=== PATIENT | male | born 1975 | race Caucasian/White ===

== ENCOUNTER → 2016-07-10 | Outpatient (CLI) | payer BC ==
[~2016-07-10] MED LIST: ASCOCRY2; CHOL20009 PO; IBUP-1459 PO; MISCCAP80 PO; PNT500 PO; PRD5 PO; PRT40 PO; RMCI IV; iron IV
[2016-07-10 18:44] LABS: BASO % 0.5 %; BASO ABS # 0.07 K/uL (0-0.2); COMPLETE YES; HEMATOCRIT 35.9 % (42-52); IG% 0.2 %; LYMPH % 34.2 %; LYMPH ABS # 4.48 K/uL (1.2-3.4); MEAN CELL VOLUME 78.9 fL (80-100); MEAN CORPUSCULAR HEMOGLOBIN 25.7 pg (25-34); MEAN CORPUSCULAR HGB CONC 32.6 g/dl (32-36); MEAN PLATELET VOLUME 9.5 fL (7.4-10.4); MONO % 5.6 %; NEUT % 55.5 %; PLATELET COUNT 473 K/uL (130-400); RED BLOOD COUNT 4.55 M/uL (4.7-6.1); WHITE BLOOD COUNT 13.11 K/uL (4.8-10.8)
[2016-07-10 18:57] LABS: ALT/SGPT 29 U/L (12-78); AST/SGOT 17 U/L (15-37); BLOOD UREA NITROGEN 10 mg/dl (7-18); BUN/CREATININE RATIO 12.2 (10-20); CALCIUM 8.8 mg/dl (8.5-10.1); CARBON DIOXIDE 31 mmol/L (21-32); CHLORIDE 103 mmol/L (98-107); CHOLESTEROL 119 mg/dl (0-200); CREATININE 0.82 mg/dl (0.60-1.40); GLUCOSE 101 mg/dl (70-99); POTASSIUM 3.8 mmol/L (3.5-5.1); SODIUM 140 mmol/L (136-145); TRIGLYCERIDES 115 mg/dl (0-150); VERY LOW DENSITY LIPOPROT CALC 23 mg/dl
[2016-07-10 19:00] LABS: ALB/GLOB RATIO 0.9 (0.9-2); ALKALINE PHOSPHATASE 89 U/L (45-117); C-REACTIVE PROTEIN < 0.29 mg/dl (0-0.29); CHOLESTEROL/HDL RATIO 2.1; FERRITIN 3.9 ng/ml (8.0-388.0); HDL CHOLESTEROL 56 mg/dl; LDL CHOLESTEROL CALCULATED 40 mg/dl; TOTAL IRON BINDING CAPACITY 394 mcg/dl (250-450)
== END | disposition home or self-care (01) ==
LOC: C.LAB 17:51
PROVIDERS: ATTEND Physician Assistant
DX: Z00.00 Encounter for general adult medical examination without abnormal findings (principal); K50.90 Crohn's disease, unspecified, without complications

== ENCOUNTER → 2016-10-15 | Outpatient (CLI) | payer BC ==
[2016-10-15 17:28] LABS: ALT/SGPT 17 U/L (12-78); BLOOD UREA NITROGEN 12 mg/dl (7-18); CARBON DIOXIDE 29 mmol/L (21-32); CHLORIDE 104 mmol/L (98-107); CREATININE 0.98 mg/dl (0.60-1.40); GLUCOSE 79 mg/dl (70-99); POTASSIUM 3.9 mmol/L (3.5-5.1); SODIUM 141 mmol/L (136-145)
[2016-10-15 17:31] LABS: ALB/GLOB RATIO 0.8 (0.9-2); ALKALINE PHOSPHATASE 106 U/L (45-117); AST/SGOT 14 U/L (15-37)
== END | disposition home or self-care (01) ==
LOC: C.LAB 13:48
PROVIDERS: ATTEND Physician Assistant
DX: K50.90 Crohn's disease, unspecified, without complications (principal)

== ENCOUNTER → 2016-10-15 | Outpatient (CLI) | payer BC ==
--- NOTE | 2016-10-15 13:05 | DIAGNOSTIC IMAGING REPORT ---
CHEST 2 VIEWS ROUTINE HISTORY:41 [id number] Crohn's [id number] Positive QuantiFERON-TB Gold testRA COMPARISON: Chest radiograph 06/09/2015. TECHNIQUE: Frontal and lateral views of the chest. FINDINGS: Cardiomediastinal and hilar silhouettes are within normal limits. No pneumothorax, effusion, focal airspace consolidation or overt pulmonary edema. Lungs are mildly hyperinflated. The bones are grossly intact. IMPRESSION: No acute cardiopulmonary process. The above report was generated using voice recognition software. It may contain grammatical, syntax or spelling errors. Electronically signed by: Kendrick Neville M.D. 10/15/2016 1:04 PM Dictated Date/Time: 10/15/2016 1:03 PM
== END | disposition home or self-care (01) ==
LOC: C.RAD1850 12:42
PROVIDERS: ATTEND Internal Medicine
DX: K50.90 Crohn's disease, unspecified, without complications (principal); R76.12 Nonspecific reaction to cell mediated immunity measurement of gamma interferon antigen response without active tuberculosis

== ENCOUNTER → 2016-12-23 | Outpatient (CLI) | payer BC ==
[2016-12-23 17:48] LABS: ALB/GLOB RATIO 0.8 (0.9-2); ALKALINE PHOSPHATASE 87 U/L (45-117); ALT/SGPT 15 U/L (12-78); AST/SGOT 12 U/L (15-37); BLOOD UREA NITROGEN 9 mg/dl (7-18); BUN/CREATININE RATIO 13.2 (10-20); C-REACTIVE PROTEIN 1.41 mg/dl (0-0.29); CALCIUM 8.3 mg/dl (8.5-10.1); CARBON DIOXIDE 29 mmol/L (21-32); CHLORIDE 104 mmol/L (98-107); CREATININE 0.69 mg/dl (0.60-1.40); GLUCOSE 105 mg/dl (70-99); POTASSIUM 3.3 mmol/L (3.5-5.1); SODIUM 140 mmol/L (136-145)
[2016-12-23 19:17] LABS: HEMATOCRIT 23.2 % (42-52); MEAN CELL VOLUME 67.4 fL (80-100); MEAN CORPUSCULAR HEMOGLOBIN 20.1 pg (25-34); MEAN CORPUSCULAR HGB CONC 29.7 g/dl (32-36); PLATELET COUNT 627 K/uL (130-400); RED BLOOD COUNT 3.44 M/uL (4.7-6.1)
[2016-12-23 19:20] LABS: BASO % 0.3 %; BASO ABS # 0.04 K/uL (0-0.2); COMPLETE YES; EOS % 5.3 %; HYPOCHROMIA PRESENT; IG% 0.3 %; LYMPH % 22.6 %; MICROCYTOSIS PRESENT; MONO % 8.5 %
== END | disposition home or self-care (01) ==
LOC: C.LAB1850 15:49
PROVIDERS: ATTEND Physician Assistant
DX: K50.90 Crohn's disease, unspecified, without complications (principal)

== ENCOUNTER 2016-12-24 09:33 | Inpatient (IN) | payer BC ==
[2016-12-24] VITALS (13 sets, daily range): BP systolic 111–129; BP diastolic 72–81; PULSE 87–109; TEMP 36.9–37.4; O2SAT 93–100; Ht 175.3 cm; Wt 67.7 kg
[~2016-12-24] VITALS: Ht 175.3 cm; Wt 67.7 kg
[~2016-12-24 09:33] MED LIST changes: -ASCOCRY2; -PRD5 PO; -PRT40 PO; -RMCI IV
[2016-12-24] MEDS ORDERED: SODIUM CHLORIDE 0.9% 1000ML 500 ML IV STA (09:55)
[2016-12-24] MEDS ORDERED: SODIUM CHLORIDE 0.9% 1000ML 1,000 ML IV STA (09:55)
[2016-12-24] MEDS ORDERED: PANTOprazole INJ 80 MG in DEXTROSE 5% 100ML IV ONE (10:15)
[2016-12-24] MEDS ORDERED: RMCI IV (10:28)
[2016-12-24] MEDS ORDERED: PNT500 PO (10:28)
[2016-12-24] MEDS ORDERED: PANTOprazole INJ 40 MG in DEXTROSE 5% 100ML IV SCH (10:30)
--- NOTE | 2016-12-24 10:38 | EMERGENCY ROOM VISIT NOTE ---
History Report prepared by Rakesh: Kirti Lucas Under the Supervision of: Dr. Dada Torres M.D. First contact with patient: 09:48 Chief Complaint: ABDOMINAL PAIN Stated Complaint: STOMACH PAINS History of Present Illness The patient is a 41 year old male who presents to the Emergency Room with complaints of constant abdominal pain for the past four days. The patient has a history of Crohn's Disease. Four days ago he felt like he was experiencing a typical flare-up of his Crohn's. He had sharp abdominal pain that was worse in the RLQ and nausea, which he states is typical of his flare-ups. Usually his symptoms last for about 1 day and then resolve on their own. This time his symptoms have persisted for four days. His pain has been up to a 10/10 in severity. He rates his current pain as a 2/10 in severity. He has not been taking anything for his symptoms. Since his symptoms did not go away he called his PCP's office yesterday. They did not see him in the office but sent him to have blood work done. The patient received a phone call this morning saying that his hemoglobin was 6.9 and that he should come to the ED for further evaluation. He reports that he has been feeling more fatigued lately. states that he appears pale. The patient denies fevers, chills, lightheadedness , shortness of breath, and hematochezia. He has been having black stools lately. He is still having bowel movements and passing gas. He feels more bloated than usual. The patient has never had to have abdominal surgery for his Crohn's. He gets iron treatments and also takes Remicade. He has never had to receive blood before. The patient was scheduled to have his wisdom teeth removed tomorrow. His oral surgeon advised him to take ibuprofen for his dental pain. The patient states that he has been taking ibuprofen frequently for the past few weeks. Source of History: patient, spouse/significant other Onset: 4 days ago Position: abdomen Symptom Intensity: 10/10 Quality: sharp Timing: constant Modifying Factors (Worsening): other (Hx of Crohn's) Associated Symptoms: + nausea, + melena, + fatigue, No fevers, No chills, No SOB, No hematochezia Review of Systems See HPI for pertinent positives & negatives. A total of 10 systems reviewed and were otherwise negative. Past Medical & Surgical Medical Problems: (1) Crohn's disease, unspecified, without complications (2) GIB (gastrointestinal bleeding) Family History No pertinent history stated. Social History Smoking Status: Former Smoker Marital Status: Housing Status: lives with significant other Occupation Status: employed Current/Historical Medications Scheduled Cholecalciferol (Vitamin D), 1 TAB PO QAM Infliximab (Remicade), Unknown Dose IV Q6WK Mesalamine (Pentasa), 1,500 MG PO BID Probiotic Product (Probiotic), 1 CAP PO QAM [iron], IV DIRECTED Allergies Coded Allergies: No Known Allergies (Verified , 12/24/16) Physical Exam Vital Signs Date Time Temp Pulse Resp B/P (MAP) Pulse Ox O2 Delivery O2 Flow Rate FiO2 12/24/16 11:31 121/76 96 12/24/16 10:48 88 16 121/76 99 Room Air 12/24/16 09:34 36.6 102 16 121/81 94 Room Air Physical Exam GENERAL: Patient is in no acute distress. HEENT: No acute trauma, normocephalic atraumatic, mucous membranes moist, no nasal congestion, no scleral icterus. NECK: No stridor, no adenopathy, no meningismus, trachea is midline. LUNGS: Clear to auscultation bilaterally, no wheeze, no rhonchi, breath sounds equal. HEART: Without murmurs gallops or rubs, regular rate and rhythm. ABDOMEN: Soft, nontender, bowel sounds positive, no hernias, no peritonitis. Mild distention with some tympani to percussion. RECTAL: No stool in the rectal vault, heme testing non-diagnostic. EXTREMITIES: No cyanosis or edema, full range of motion of all the joints without pain or difficulty, no signs for acute trauma. NEUROLOGIC: Oriented x 3, no acute motor or sensory deficits, no focal weakness. SKIN: No rash, no jaundice, no diaphoresis. Pale. Medical Decision & Procedures ER Provider Diagnostic Interpretation: Radiology results as stated below per my review and radiologist interpretation: ABDOMEN 2VIEW W/PA CHEST RTN CLINICAL HISTORY: Abdominal pain COMPARISON STUDY: Chest x-ray dated 10/15/2016 FINDINGS: The erect chest reveals no free air. There is no focal pulmonary consolidation. Erect and supine views the abdomen reveal no abnormally dilated loops of large or small bowel. There are no transition zones indicate bowel obstruction. There are pelvic basin calcifications likely are presenting phleboliths. 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 IMPRESSION: No evidence of bowel obstruction. No evidence of free air. Electronically signed by: Ron Hopson M.D. 12/24/2016 10:53 AM Dictated Date/Time: 12/24/2016 10:51 AM Laboratory Results 12/24/16 10:09 Red Blood Count 3.34, Mean Corpuscular Volume 68.0, Mean Corpuscular Hemoglobin 19.8, Mean Corpuscular Hemoglobin Concent 29.1, Mean Platelet Volume 8.9, Neutrophils (%) (Auto) 46.8, Lymphocytes (%) (Auto) 35.7, Monocytes (%) (Auto) 9.2, Eosinophils (%) (Auto) 7.6, Basophils (%) (Auto) 0.5, Neutrophils # (Auto) 3.87, Lymphocytes # (Auto) 2.95, Monocytes # (Auto) 0.76, Eosinophils # (Auto) 0.63, Basophils # (Auto) 0.04 12/24/16 10:09 Test 12/24/16 10:09 White Blood Count 8.27 K/uL (4.8-10.8) Red Blood Count 3.34 M/uL (4.7-6.1) Hemoglobin 6.6 g/dL (14.0-18.0) Hematocrit 22.7 % (42-52) Mean Corpuscular Volume 68.0 fL (80-100) Mean Corpuscular Hemoglobin 19.8 pg (25-34) Mean Corpuscular Hemoglobin Concent 29.1 g/dl (32-36) Platelet Count 626 K/uL (130-400) Mean Platelet Volume 8.9 fL (7.4-10.4) Neutrophils (%) (Auto) 46.8 % Lymphocytes (%) (Auto) 35.7 % Monocytes (%) (Auto) 9.2 % Eosinophils (%) (Auto) 7.6 % Basophils (%) (Auto) 0.5 % Neutrophils # (Auto) 3.87 K/uL (1.4-6.5) Lymphocytes # (Auto) 2.95 K/uL (1.2-3.4) Monocytes # (Auto) 0.76 K/uL (0.11-0.59) Eosinophils # (Auto) 0.63 K/uL (0-0.5) Basophils # (Auto) 0.04 K/uL (0-0.2) RDW Standard Deviation 40.4 fL (36.4-46.3) RDW Coefficient of Variation 16.1 % (11.5-14.5) Immature Granulocyte % (Auto) 0.2 % Immature Granulocyte # (Auto) 0.02 K/uL (0.00-0.02) Hypochromasia PRESENT Microcytosis PRESENT Anion Gap 7.0 mmol/L (3-11) Est Creatinine Clear Calc Drug Dose 127.3 ml/min Estimated GFR () 135.2 Estimated GFR (Non- 116.7 BUN/Creatinine Ratio 12.8 (10-20) Calcium Level 8.3 mg/dl (8.5-10.1) Total Bilirubin 0.3 mg/dl (0.2-1) Aspartate Amino Transf (AST/SGOT) 10 U/L (15-37) Alanine Aminotransferase (ALT/SGPT) 16 U/L (12-78) Alkaline Phosphatase 84 U/L (45-117) Total Protein 6.8 gm/dl (6.4-8.2) Albumin 3.0 gm/dl (3.4-5.0) Globulin 3.8 gm/dl (2.5-4.0) Albumin/Globulin Ratio 0.8 (0.9-2) Lipase 132 U/L (73-393) Laboratory results reviewed by me. Medications Administered Medications (Trade) Dose Ordered Sig/Cheo Route Start Time Stop Time Status Last Admin Dose Admin Sodium Chloride 500 ml @ 999 mls/hr Q31M STAT IV 12/24/16 09:55 12/24/16 10:25 DC 12/24/16 10:05 999 MLS/HR Sodium Chloride 1,000 ml @ 200 mls/hr Q5H STAT IV 12/24/16 09:55 12/24/16 12:55 DC 12/24/16 11:28 200 MLS/HR Pantoprazole Sodium 80 mg/ Dextrose 120 ml @ 480 mls/hr TODAY@1015 ONCE IV 12/24/16 10:15 12/24/16 10:29 DC 12/24/16 10:49 480 MLS/HR Pantoprazole Sodium 40 mg/ Dextrose 100 ml @ 20 mls/hr Q5H IV 12/24/16 10:30 12/24/16 15:29 12/24/16 11:10 20 MLS/HR ED Course 0948: The patient was evaluated in room A11B. A complete history and physical exam was performed. 0955: NSS 1000 ml @ 200 mls/hr IV, NSS 500 ml @ 999 mls/hr IV 1003: Protonix bolus/drip IV 1047: I spoke with Dr. Navas. We discussed the patients case. The patient will be evaluated by the [facility] for further management. 1102: I reassessed the patient at this time. He is feeling better and resting comfortably. I discussed the results and treatment plan with the patient. I answered all pertaining questions that he had. He expressed understanding and verbalized agreement. Medical Decision Differential diagnoses includes upper or lower GI bleed, anemia, bowel obstruction, Crohn's flare, ulcer, electrolyte imbalance, infection. There is no leukocytosis. The patient is significantly anemic with a hemoglobin in the range of 6. This is a drop for him. No significant electrolyte abnormality, kidney failure or hepatitis. Obstruction series does not show bowel obstruction or pneumonia. No free air. I did attempt to check the patient's stool for blood, there was no stool in the rectal vault to test. The patient received IV saline and IV Protonix. He was ordered for blood for transfusion although it is not yet ready to give. I talked to the patient and case management. Admission/observation is warranted. The on-call hospitalist was consulted. Given the black discoloration to his stools, given his recent nonsteroidal use, I suspect he has an upper GI bleed. Medication Reconcilliation Current Medication List: was personally reviewed by me Blood Pressure Screening Patient's blood pressure: Normal blood pressure Consults Time Called: 1044 Consulting Physician: Dr. Navas Returned Call: [address] Navas. We discussed the patients case. The patient will be evaluated by the [facility] for further management. Impression Primary Impression: Anemia Additional Impression: Exacerbation of Crohn's disease Scribe Attestation The scribe's documentation has been prepared under my direction and personally reviewed by me in its entirety. I confirm that the note above accurately reflects all work, treatment, procedures, and medical decision making performed by me. Departure Information Dispostion Being Evaluated By Hospitalist Miguel Angel Lopez M.D. (PCP) Patient Instructions My [facility] Problem Qualifiers Primary Impression: Anemia Anemia type: unspecified type Qualified Codes: D64.9 - Anemia, unspecified Additional Impression: Exacerbation of Crohn's disease Digestive disease complication type: other complication Qualified Codes: K50.918 - Crohn's disease, unspecified, with other complication
[2016-12-24 10:40] LABS: HEMATOCRIT 22.7 % (42-52); MEAN CORPUSCULAR HEMOGLOBIN 19.8 pg (25-34); MEAN CORPUSCULAR HGB CONC 29.1 g/dl (32-36); MEAN PLATELET VOLUME 8.9 fL (7.4-10.4); PLATELET COUNT 626 K/uL (130-400); RED BLOOD COUNT 3.34 M/uL (4.7-6.1); WHITE BLOOD COUNT 8.27 K/uL (4.8-10.8)
[2016-12-24 10:45] LABS: BUN/CREATININE RATIO 12.8 (10-20); CALCIUM 8.3 mg/dl (8.5-10.1); CREATININE 0.72 mg/dl (0.60-1.40); POTASSIUM 3.6 mmol/L (3.5-5.1)
[2016-12-24 10:47] LABS: ALB/GLOB RATIO 0.8 (0.9-2)
--- NOTE | 2016-12-24 10:54 | DIAGNOSTIC IMAGING REPORT ---
ABDOMEN 2VIEW W/PA CHEST RTN CLINICAL HISTORY: Abdominal pain COMPARISON STUDY: Chest x-ray dated 10/15/2016 FINDINGS: The erect chest reveals no free air. There is no focal pulmonary consolidation. Erect and supine views the abdomen reveal no abnormally dilated loops of large or small bowel. There are no transition zones indicate bowel obstruction. There are pelvic basin calcifications likely are presenting phleboliths. 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 IMPRESSION: No evidence of bowel obstruction. No evidence of free air. Electronically signed by: Ron Hopson M.D. 12/24/2016 10:53 AM Dictated Date/Time: 12/24/2016 10:51 AM
[2016-12-24 11:08] LABS: BASO % 0.5 %; BASO ABS # 0.04 K/uL (0-0.2); COMPLETE YES; EOS % 7.6 %; HYPOCHROMIA PRESENT; IG% 0.2 %; LYMPH % 35.7 %; LYMPH ABS # 2.95 K/uL (1.2-3.4); MICROCYTOSIS PRESENT; MONO % 9.2 %; NEUT % 46.8 %
[2016-12-24] MEDS ORDERED: ONDANSETRON INJ 2 MG/ML 2 ML VIAL IV PRN (11:30)
--- NOTE | 2016-12-24 11:37 | History and Physical ---
History & Physical Date & Time of Service: Dec 24, 2016 at 11:24 Chief Complaint: Stomach Pains Primary Care Physician: Miguel Angel Cardona M.D. History of Present Illness Source: patient Pt is a 41 yo male who presents to the ER due to abnormal lab value Hg 6.6 and complaints of intermittent lower right abdominal pain for the past four days. The patient has a history of Crohn's Disease in which he follows up with Dr. Michelle. Four days ago he felt like he was experiencing a typical flare-up of his Crohn's. Pt reports some diarrhea and moderate abd pain with no radiation. No fevers or chills reported. He rates his current pain as a 2/10 in severity. Pt also has been taking motrin for past 2 weeks for his wisdom teeth pain. Pt reports he was supposed to have them removed tomorrow due to impaction. He does state having dark tarry stools for past 1 week. Pt states he has hx of iron def anemia has well and has been on iron infusions in the past. Past Medical/Surgical History Medical Problems: (1) Crohn's disease, unspecified, without complications Status: Chronic Social History Smoking Status: Former Smoker Marital Status: Occupational Status: employed Multi-Drug Resistant Organisms History of MDRO: No Allergies Coded Allergies: No Known Allergies (Verified , 12/24/16) Home Medications Scheduled Cholecalciferol (Vitamin D), 1 TAB PO QAM Infliximab (Remicade), Unknown Dose IV Q6WK Mesalamine (Pentasa), 1,500 MG PO BID Probiotic Product (Probiotic), 1 CAP PO QAM [iron], IV DIRECTED Review of Systems Constitutional: No fever, No chills ENT: No hearing loss, No unusual epistaxis, No nasal symptoms, No sore throat Respiratory: No cough, No sputum, No wheezing, No shortness of breath, No dyspnea on exertion Cardiovascular: No chest pain, No orthopnea, No PND, No edema Abdomen: + pain, + diarrhea, + GI bleeding, No nausea, No vomiting, No constipation Musculoskeletal: No joint pain, No muscle pain, No swelling, No calf pain Genitourinary - Male: No hematuria, No dysuria, No urinary frequency, No urinary urgency Neurologic: No memory loss, No paralysis, No weakness, No numbness/tingling Psychiatric: No depression symptoms, No anhedonism, No anxiety, No insomnia Hematologic / Lymphatic: No abnormal bleeding/bruising, No clotting problems, No night sweats Integumentary: No rash, No itch Physical Exam Vital Signs Date Time Temp Pulse Resp B/P (MAP) Pulse Ox O2 Delivery O2 Flow Rate FiO2 12/24/16 10:48 88 16 121/76 99 Room Air 12/24/16 09:34 36.6 102 16 121/81 94 Room Air General Appearance: WD/WN, no apparent distress Head: normocephalic, atraumatic Eyes: normal inspection, PERRL, EOMI, sclerae normal Neck: supple, no adenopathy, thyroid normal, no JVD Respiratory/Chest: chest non-tender, lungs clear, normal breath sounds, no respiratory distress Cardiovascular: regular rate, rhythm, no edema, no gallop, no JVD Abdomen/GI: normal bowel sounds, non tender, soft, no organomegaly Extremities/Musculoskelatal: normal inspection, no calf tenderness, normal capillary refill, no pedal edema Neurologic/Psych: no motor/sensory deficits, alert, oriented x 3 Skin: normal color, warm/dry, no rash Lymphatic: no adenopathy Diagnostics Laboratory Results Results Past 24 Hours Test 12/24/16 10:09 Range/Units White Blood Count 8.27 4.8-10.8 K/uL Red Blood Count 3.34 4.7-6.1 M/uL Hemoglobin 6.6 14.0-18.0 g/dL Hematocrit 22.7 42-52 % Mean Corpuscular Volume 68.0 80-100 fL Mean Corpuscular Hemoglobin 19.8 25-34 pg Mean Corpuscular Hemoglobin Concent 29.1 32-36 g/dl Platelet Count 626 130-400 K/uL Mean Platelet Volume 8.9 7.4-10.4 fL Neutrophils (%) (Auto) 46.8 % Lymphocytes (%) (Auto) 35.7 % Monocytes (%) (Auto) 9.2 % Eosinophils (%) (Auto) 7.6 % Basophils (%) (Auto) 0.5 % Neutrophils # (Auto) 3.87 1.4-6.5 K/uL Lymphocytes # (Auto) 2.95 1.2-3.4 K/uL Monocytes # (Auto) 0.76 0.11-0.59 K/uL Eosinophils # (Auto) 0.63 0-0.5 K/uL Basophils # (Auto) 0.04 0-0.2 K/uL RDW Standard Deviation 40.4 36.4-46.3 fL RDW Coefficient of Variation 16.1 11.5-14.5 % Immature Granulocyte % (Auto) 0.2 % Immature Granulocyte # (Auto) 0.02 0.00-0.02 K/uL Hypochromasia PRESENT Microcytosis PRESENT Sodium Level 141 136-145 mmol/L Potassium Level 3.6 3.5-5.1 mmol/L Chloride Level 107 98-107 mmol/L Carbon Dioxide Level 27 21-32 mmol/L Anion Gap 7.0 3-11 mmol/L Blood Urea Nitrogen 9 7-18 mg/dl Creatinine 0.72 0.60-1.40 mg/dl Est Creatinine Clear Calc Drug Dose 127.3 ml/min Estimated GFR () 135.2 Estimated GFR (Non- 116.7 BUN/Creatinine Ratio 12.8 10-20 Random Glucose 99 70-99 mg/dl Calcium Level 8.3 8.5-10.1 mg/dl Total Bilirubin 0.3 0.2-1 mg/dl Aspartate Amino Transf (AST/SGOT) 10 15-37 U/L Alanine Aminotransferase (ALT/SGPT) 16 12-78 U/L Alkaline Phosphatase 84 45-117 U/L Total Protein 6.8 6.4-8.2 gm/dl Albumin 3.0 3.4-5.0 gm/dl Globulin 3.8 2.5-4.0 gm/dl Albumin/Globulin Ratio 0.8 0.9-2 Lipase 132 73-393 U/L Impression Assessment and Plan Pt is a 41 yo male with hs of Crohns who was referred to ER after labs this AM reports low hemoglobin. Pt has reported right lower quadrant abd pain in addition for past 4 days, as well as having dark tarry stools for past week. Pt has been taking motrin for his wisdom teeth pain in which was scheduled to removed on Acute anemia likely secondary to upper GI bleed in setting of NSAID use. Will admit to tele at this time. 2 units of PRBCS ordered in ER to be transfused. Will obtain serial HHs as well. Prontonix drip started. Dr Michelle consulted as well. Crohns with exacerbation - Pain also may be related to gastritis from NSAID use. At this time pain controlled, if worsening may need to obtain CT abd/ pelvis. Cont mesalamine. Will start on IV solumedrol 60 mg q 8hrs in addition to zosyn and flagyl. Pt is FULL CODE VTE Prophylaxis VTE Risk Assessment Done? Y/N: Yes Risk Level: Moderate
[2016-12-24] MEDS ORDERED: PIPERACILL/TAZOBAC CONSULT ACTIVE PRN (13:00)
[2016-12-24] MEDS ORDERED: PIPERACILL/TAZOBAC IV 3.375 GM in DEXTROSE 5% 100ML IV ONE (13:00)
[2016-12-24] MEDS: METHYLPREDNISOLONE IV 60 MG in SYRINGE 0 ML IV SCH ×2 (13:16→22:19)
[2016-12-24] MEDS: METRONIDAZOLE / NSS 500 MG in PREMIXED NSS 100 ML IV SCH ×2 (13:16→22:19)
[2016-12-24] MEDS: SODIUM CHLORIDE 0.9% 1000ML 1,000 ML IV SCH ×2 (13:16→23:49)
[2016-12-24 14:35] LABS: HEMATOCRIT 19.9 % (42-52)
[2016-12-24] MEDS: PANTOprazole INJ 40 MG in DEXTROSE 5% 100ML IV SCH ×2 (15:36→20:54)
[2016-12-24] MEDS: PIPERACILL/TAZOBAC IV 3.375 GM in DEXTROSE 5% 100ML 100 ML IV SCH (20:55)
[2016-12-24] MEDS: MESALAMINE 250 MG CAPCR PO SCH (21:19)
[2016-12-24 23:54] LABS: HEMATOCRIT 27.9 % (42-52)
[2016-12-25] VITALS (8 sets, daily range): BP systolic 93–122; BP diastolic 59–83; PULSE 77–111; TEMP 36.3–36.9; O2SAT 95–98
--- NOTE | 2016-12-25 00:51 | GASTROINTESTINAL CONSULTATION ---
DATE OF CONSULTATION: 12/24/2016 RACE: . CONSULTING PHYSICIAN: Dr. Michelle. REASON FOR CONSULTATION: Crohn disease, GI bleed, melena. HISTORY OF PRESENT ILLNESS: Cheo Mejia is a 41-year-old male who is well known to our service. He does have a history of fistulizing Crohn disease with stricturing disease as well in the terminal ileum. He has been maintained on Remicade therapy as an outpatient as well as Pentasa. He has been seen by Dr. Chao of colorectal surgery who advised the patient to undergo surgical intervention secondary to his severe Crohn disease; however, the patient refused at that time. He did most recently undergo a colonoscopy in February of 2016, at which time he was noted to have a stricture at the ileocecal valve which did not allow the scope to pass and this was prior to his imaging studies including an upper GI with small bowel followthrough and a CT scan, prompting his visit to Dr. Chao. He most recently had laboratory studies prior to this admission on 10/15/2016, at which time he was noted to have an H&H of 11.8 and 38.3. He presented to the department of emergency medicine early this morning with complaints of abdominal pain over the past 4 days, which he attributed to "Crohn's flare." He does relay the history that he had been taking ibuprofen therapy for a cracked wisdom tooth and had been doing this for approximately 3 weeks prior to his admission. On arrival to the department of emergency medicine, he was noted to have a H&H of 6.9 and 23.2 and was microcytic with an MCV of 67.4. His white blood cell count was 11.5 and his platelet count was 627. He was subsequently started on a Protonix drip, was given Solu-Medrol 60 mg IV q. 8 hours and given Zosyn therapy 3.375 g IV q. 8 hours. At the time that I saw the patient, he appeared comfortable. He stated that he was feeling better since his arrival. He described no lightheadedness or dizziness. He did have some intermittent melena prior to his admission. He states that he has never undergone an upper endoscopy. He denied any fevers, chills, nausea, vomiting, hematemesis, hematochezia, joint pain, eye pain or skin rashes. He had no further complaints. PAST MEDICAL HISTORY: Includes stricturing and fistulizing Crohn disease of the terminal ileum, anemia. PAST SURGICAL HISTORY: None. ALLERGIES: None. MEDICATIONS: At present include Zosyn 3.375 g IV q. 8 hours, Pentasa 1500 mg p.o. b.i.d., Protonix 8 mg per hour drip, Flagyl 500 mg IV q. 8 hours, methylprednisolone 60 mg IV q. 8 hours, Zofran 4 mg IV q. 6 p.r.n. nausea. SOCIAL HISTORY: He is accompanied by his . He denies any tobacco, alcohol or illicit drug use. FAMILY HISTORY: Negative for GI malignancy or inflammatory bowel disease. REVIEW OF SYSTEMS: Negative [id number] review other than pertinent positives listed in the HPI. PHYSICAL EXAMINATION: VITAL SIGNS: Today include a temp of 37.2, pulse 92, respirations 18, blood pressure 124/79, pulse ox 98% on room air. GENERAL: Awake, cooperative, noted pallor. HEAD: Normocephalic, atraumatic. EYES: Pupils equally round. Extraocular muscles are intact. ENT: External evaluation of ears and nose are normal. Oropharynx is clear. NECK: Soft, supple. No JVD or lymphadenopathy. CHEST: Clear to auscultation bilaterally. CARDIOVASCULAR SYSTEM: Regular rate and rhythm. ABDOMEN: Soft, tender in the right lower quadrant. Nondistended. There are positive bowel sounds. There is no hepatosplenomegaly or stigmata of chronic liver disease. EXTREMITIES: No clubbing, cyanosis, or edema. SKIN: Soft, noted pallor. LABORATORY STUDIES AND RADIOGRAPHIC STUDIES: Reviewed in the HPI. IMPRESSION: A 41-year-old male with anemia, melena and a history of stricturing and fistulizing Crohn disease of the terminal ileum. PLAN: Due to the patient's melena and recent NSAID use, I would recommend that he undergo an upper endoscopy tomorrow. He will be given clear liquids today and be kept n.p.o. after midnight. I will proceed with an EGD tomorrow. I would recommend continuing his Protonix drip at 8 mg per hour at this time. I would also recommend that he be continued on Solu-Medrol, though I would decrease his dose to 40 mg IV b.i.d. as doses higher than this have not shown any significant increase in improvement of symptoms in patients with Crohn disease. I would continue antibiotics as per the primary team. I will follow his clinical course and would recommend transfusing him to maintain his H&H around 8 and 24. I will make further recommendations as needed. Once again, thanks for allowing me to participate in the care of this patient. If you have any further questions, please do not hesitate in contacting me.
[2016-12-25] MEDS: PANTOprazole INJ 40 MG in DEXTROSE 5% 100ML IV SCH ×3 (01:08→11:03)
[2016-12-25] MEDS ORDERED: NURSING VERBAL MED ORDER ONE (01:15)
[2016-12-25] MEDS ORDERED: ZOLPIDEM TARTRATE 5 MG TAB PO STA (01:27)
[2016-12-25] MEDS: PIPERACILL/TAZOBAC IV 3.375 GM in DEXTROSE 5% 100ML 100 ML IV SCH ×3 (04:24→20:15)
[2016-12-25] MEDS: METRONIDAZOLE / NSS 500 MG in PREMIXED NSS 100 ML IV SCH ×3 (05:49→22:11)
[2016-12-25] MEDS: METHYLPREDNISOLONE IV 60 MG in SYRINGE 0 ML IV SCH (05:50)
[2016-12-25 06:09] LABS: BASO % 0.1 %; BASO ABS # 0.01 K/uL (0-0.2); HEMATOCRIT 29.8 % (42-52); IG% 0.3 %; LYMPH ABS # 1.16 K/uL (1.2-3.4); MEAN CELL VOLUME 72.2 fL (80-100); MEAN CORPUSCULAR HEMOGLOBIN 21.8 pg (25-34); MEAN CORPUSCULAR HGB CONC 30.2 g/dl (32-36); MONO % 2.1 %; NEUT % 82.5 %; PLATELET COUNT 546 K/uL (130-400); RED BLOOD COUNT 4.13 M/uL (4.7-6.1); WHITE BLOOD COUNT 7.74 K/uL (4.8-10.8)
[2016-12-25 06:48] LABS: BUN/CREATININE RATIO 6.9 (10-20); CALCIUM 8.5 mg/dl (8.5-10.1); CREATININE 0.62 mg/dl (0.60-1.40); POTASSIUM 3.6 mmol/L (3.5-5.1)
[2016-12-25 06:51] LABS: ANISOCYTOSIS PRESENT; COMPLETE YES; HYPERSEGMENTED POLYS 1+; HYPOCHROMIA PRESENT; MICROCYTOSIS PRESENT
[2016-12-25] MEDS: SODIUM CHLORIDE 0.9% 1000ML 1,000 ML IV SCH ×2 (07:45→20:15)
[2016-12-25] MEDS: MESALAMINE 250 MG CAPCR PO SCH ×2 (07:45→21:04)
[2016-12-25] MEDS ORDERED: INFLUENZA VIRUS QUAD VACCINE 0.5 ML SYR IM. ONE (08:00)
[2016-12-25] MEDS ORDERED: INFLUENZA ADMINISTRATION CHARGE ONE (08:00)
[2016-12-25] MEDS ORDERED: PROPOFOL IV EMULSION 10 MG/ML 20 ML VIAL IV ONE (08:41)
[2016-12-25] MEDS ORDERED: LIDOCAINE HCL 2% 2 ML VIAL (20MG/ML) ONE (08:41)
--- NOTE | 2016-12-25 08:56 | GI REPORT ---
Procedure Date: 12/25/2016 8:49 AM Procedure: Upper GI endoscopy Indications: Melena Medicines: Monitored Anesthesia Care Complications: No immediate complications. Estimated Blood Loss: Estimated blood loss: none. Procedure: Pre-Anesthesia Assessment: - Prior to the procedure, a History and Physical was performed, and patient medications and allergies were reviewed. The patient's tolerance of previous anesthesia was also reviewed. The risks and benefits of the procedure and the sedation options and risks were discussed with the patient. All questions were answered, and informed consent was obtained. Prior Anticoagulants: The patient has taken no previous anticoagulant or antiplatelet agents. ASA Grade Assessment: II - A patient with mild systemic disease. After reviewing the risks and benefits, the patient was deemed in satisfactory condition to undergo the procedure. After obtaining informed consent, the endoscope was passed under direct vision. Throughout the procedure, the patient's blood pressure, pulse, and oxygen saturations were monitored continuously. The scope was introduced through the mouth, and advanced to the second part of duodenum. The upper GI endoscopy was accomplished without difficulty. The patient tolerated the procedure well. Findings: The esophagus was normal. The stomach was normal. The examined duodenum was normal. Impression: - Normal esophagus. - Normal stomach. - Normal examined duodenum. - No specimens collected. Recommendation: - [facility]. - Perform a CT scan (computed tomography) of abdomen with contrast and pelvis with contrast today. - Use Protonix (pantoprazole) 40 mg PO daily. Andrea Michelle, DO 12/25/2016 8:55:42 AM This report has been signed electronically. Note Initiated On: 12/25/2016 8:49 AM I attest to the content of the Intraoperative Record and orders documented therein, exceptions below
[2016-12-25] MEDS ORDERED: OPTIRAY 320 IV PRN (09:15)
--- NOTE | 2016-12-25 09:38 | Anesthesiology Progress Note ---
Anesthesia Post Op Note Date & Time Dec 25, 2016 at 09:38 Vital Signs Pain Intensity: 0 Vital Signs Past 12 Hours Date Time Temp Pulse Resp B/P (MAP) Pulse Ox O2 Delivery O2 Flow Rate FiO2 12/25/16 09:12 82 18 111/75 (87) 98 Room Air 12/25/16 08:57 93 18 99/69 (79) 97 Room Air 12/25/16 08:37 36.7 91 18 122/75 (91) 95 Room Air 12/25/16 08:10 36.9 111 18 93/59 96 Room Air 12/25/16 07:45 Room Air 12/25/16 07:34 36.9 111 18 93/59 (70) 96 12/25/16 04:12 36.3 88 20 107/67 (80) 98 Room Air 12/25/16 04:00 Room Air 12/25/16 00:10 36.9 86 18 122/83 (96) 97 Room Air 12/25/16 00:00 Room Air Notes Mental Status: alert / awake / arousable, participated in evaluation Pt Amnestic to Procedure: Yes Nausea / Vomiting: adequately controlled Pain: adequately controlled Airway Patency, RR, SpO2: stable & adequate BP & HR: stable & adequate Hydration State: stable & adequate Anesthetic Complications: no major complications apparent
--- NOTE | 2016-12-25 11:31 | Hospitalist Progress Note ---
Hospitalist Progress Note Date of Service Dec 25, 2016. (Neeru Anthony CRNP) Subjective Pt evaluation today including: conversation w/ patient, physical exam, chart review, lab review, review of studies, conversation w/ c consultant Pain: none Voiding: no voiding problems Mr. Mejia appears comfortable lying in bed. He feels that his symptoms have subsided except for some tenderness to palpation in the right lower quadrant which is chronic. He has not had any black or bloody bowel movements since arriving at the hospital. He was able to drink contrast for the CT without difficulty. Constitutional: No fever, No chills Respiratory: No cough, No shortness of breath Cardiovascular: No chest pain Abdomen: No pain, No nausea, No vomiting, No diarrhea, No constipation All Other Systems: Reviewed and Negative (Neeru Anthony CRNP) Medications Medications (Trade) Dose Ordered Sig/Cheo Route Start Time Stop Time Status Last Admin Dose Admin Mesalamine (Pentasa Controlled Rel Cap) 1,500 mg BID PO 12/24/16 21:00 01/23/17 20:59 12/24/16 21:19 1,500 MG Piperacillin Sod/ Tazobactam Sod 3.375 gm/Dextrose 115 ml @ 28.75 mls/ hr Q8H IV 12/24/16 20:00 01/03/17 19:59 12/25/16 12:23 28.75 MLS/HR Pantoprazole Sodium 40 mg/ Dextrose 100 ml @ 20 mls/hr Q5H IV 12/24/16 15:30 12/25/16 11:47 DC 12/25/16 11:03 20 MLS/HR Zolpidem Tartrate (Ambien Tab) 5 mg NOW STAT PO 12/25/16 01:27 12/25/16 01:28 DC 12/25/16 01:33 5 MG Acetaminophen (Tylenol Tab) 650 mg Q4H PRN PO 12/25/16 13:00 01/24/17 12:59 12/25/16 13:15 650 MG (Neeru Anthony CRNP) Objective Vital Signs Date Time Temp Pulse Resp B/P (MAP) Pulse Ox O2 Delivery O2 Flow Rate FiO2 12/25/16 11:05 36.9 97 18 117/76 (90) 98 9/20/17 09:27 86 18 108/72 (84) 99 Room Air 12/25/16 09:12 82 18 111/75 (87) 98 Room Air 12/25/16 08:57 93 18 99/69 (79) 97 Room Air 12/25/16 08:37 36.7 91 18 122/75 (91) 95 Room Air 12/25/16 08:10 36.9 111 18 93/59 96 Room Air 12/25/16 07:45 Room Air 12/25/16 07:34 36.9 111 18 93/59 (70) 96 12/25/16 04:12 36.3 88 20 107/67 (80) 98 Room Air 12/25/16 04:00 Room Air 12/25/16 00:10 36.9 86 18 122/83 (96) 97 Room Air 12/25/16 00:00 Room Air 12/24/16 20:45 36.9 88 18 122/79 96 12/24/16 20:00 Room Air 12/24/16 19:45 37.1 93 18 121/80 93 12/24/16 19:15 37.0 101 18 125/80 96 12/24/16 18:46 37.4 103 18 129/81 98 12/24/16 18:30 37.3 100 18 118/76 96 12/24/16 18:14 37.2 100 18 122/80 12/24/16 17:49 37.4 98 18 118/79 96 12/24/16 17:15 36.9 109 20 120/81 98 12/24/16 16:45 37.0 93 113/72 96 12/24/16 16:15 37.2 92 18 124/79 98 12/24/16 16:00 Room Air 12/24/16 15:38 37.0 91 20 117/75 12/24/16 15:36 37.2 89 18 111/74 (86) 96 Room Air 12/24/16 13:10 36.9 87 16 116/76 100 Room Air 12/24/16 11:31 121/76 96 (Neeru Anthony, CONCRETE VIBRATOR OPERATOR) Physical Exam General Appearance: WD/WN, no apparent distress Eyes: normal inspection Respiratory/Chest: chest non-tender, lungs clear, normal breath sounds, no respiratory distress, no accessory muscle use Cardiovascular: regular rate, rhythm, no edema, no gallop, no murmur Abdomen: normal bowel sounds, soft, + tenderness (right lower quadrant) Neurologic/Psychiatric: alert, normal mood/affect, oriented x 3 Skin: normal color, warm/dry (Neeru Anthony, DENITA) Laboratory Results 12/25/16 05:54 Red Blood Count 4.13, Mean Corpuscular Volume 72.2 #, Mean Corpuscular Hemoglobin 21.8, Mean Corpuscular Hemoglobin Concent 30.2, Mean Platelet Volume 9.0, Neutrophils (%) (Auto) 82.5, Lymphocytes (%) (Auto) 15.0, Monocytes (%) ( Auto) 2.1, Eosinophils (%) (Auto) 0.0, Basophils (%) (Auto) 0.1, Neutrophils # ( Auto) 6.39, Lymphocytes # (Auto) 1.16, Monocytes # (Auto) 0.16, Eosinophils # ( Auto) 0.00, Basophils # (Auto) 0.01 12/25/16 05:54 Test 12/24/16 10:09 12/25/16 05:54 Total Bilirubin 0.3 mg/dl (0.2-1) Aspartate Amino Transf (AST/SGOT) 10 U/L (15-37) Alanine Aminotransferase (ALT/SGPT) 16 U/L (12-78) Alkaline Phosphatase 84 U/L (45-117) Total Protein 6.8 gm/dl (6.4-8.2) Albumin 3.0 gm/dl (3.4-5.0) Globulin 3.8 gm/dl (2.5-4.0) Albumin/Globulin Ratio 0.8 (0.9-2) Lipase 132 U/L (73-393) White Blood Count 7.74 K/uL (4.8-10.8) Red Blood Count 4.13 M/uL (4.7-6.1) Hemoglobin 9.0 g/dL (14.0-18.0) Hematocrit 29.8 % (42-52) Mean Corpuscular Volume 72.2 fL (80-100) Mean Corpuscular Hemoglobin 21.8 pg (25-34) Mean Corpuscular Hemoglobin Concent 30.2 g/dl (32-36) Platelet Count 546 K/uL (130-400) Mean Platelet Volume 9.0 fL (7.4-10.4) Neutrophils (%) (Auto) 82.5 % Lymphocytes (%) (Auto) 15.0 % Monocytes (%) (Auto) 2.1 % Eosinophils (%) (Auto) 0.0 % Basophils (%) (Auto) 0.1 % Neutrophils # (Auto) 6.39 K/uL (1.4-6.5) Lymphocytes # (Auto) 1.16 K/uL (1.2-3.4) Monocytes # (Auto) 0.16 K/uL (0.11-0.59) Eosinophils # (Auto) 0.00 K/uL (0-0.5) Basophils # (Auto) 0.01 K/uL (0-0.2) RDW Standard Deviation 48.7 fL (36.4-46.3) RDW Coefficient of Variation 18.6 % (11.5-14.5) Immature Granulocyte % (Auto) 0.3 % Immature Granulocyte # (Auto) 0.02 K/uL (0.00-0.02) Hypersegmented Polys 1+ Hypochromasia PRESENT Anisocytosis PRESENT Microcytosis PRESENT Anion Gap 7.0 mmol/L (3-11) Est Creatinine Clear Calc Drug Dose 147.8 ml/min Estimated GFR () 143.8 Estimated GFR (Non- 124.1 BUN/Creatinine Ratio 6.9 (10-20) Calcium Level 8.5 mg/dl (8.5-10.1) Last 24 Hours Test 12/24/16 12:31 12/24/16 23:15 12/25/16 05:54 Hemoglobin 6.1 g/dL 9.0 g/dL 9.0 g/dL Hematocrit 19.9 % 27.9 % 29.8 % White Blood Count 7.74 K/uL Red Blood Count 4.13 M/uL Mean Corpuscular Volume 72.2 fL Mean Corpuscular Hemoglobin 21.8 pg Mean Corpuscular Hemoglobin Concent 30.2 g/dl Platelet Count 546 K/uL Mean Platelet Volume 9.0 fL Neutrophils (%) (Auto) 82.5 % Lymphocytes (%) (Auto) 15.0 % Monocytes (%) (Auto) 2.1 % Eosinophils (%) (Auto) 0.0 % Basophils (%) (Auto) 0.1 % Neutrophils # (Auto) 6.39 K/uL Lymphocytes # (Auto) 1.16 K/uL Monocytes # (Auto) 0.16 K/uL Eosinophils # (Auto) 0.00 K/uL Basophils # (Auto) 0.01 K/uL RDW Standard Deviation 48.7 fL RDW Coefficient of Variation 18.6 % Immature Granulocyte % (Auto) 0.3 % Immature Granulocyte # (Auto) 0.02 K/uL Hypersegmented Polys 1+ Hypochromasia PRESENT Anisocytosis PRESENT Microcytosis PRESENT Sodium Level 141 mmol/L Potassium Level 3.6 mmol/L Chloride Level 108 mmol/L Carbon Dioxide Level 26 mmol/L Anion Gap 7.0 mmol/L Blood Urea Nitrogen 4 mg/dl Creatinine 0.62 mg/dl Est Creatinine Clear Calc Drug Dose 147.8 ml/min Estimated GFR () 143.8 Estimated GFR (Non- 124.1 BUN/Creatinine Ratio 6.9 Random Glucose 134 mg/dl Calcium Level 8.5 mg/dl (Neeru Anthony CRNP) Assessment and Plan Mr. Mejia is a 41 year old man here for anemia due to GI bleed presenting with H &H 6.1&19.9, dark tarry stools x 1 week, and history of Crohn's disease as well as two weeks of NSAID use for wisdom teeth pain. Anemia/ GI bleed - received 2 units PRBCs 12/24, hemoglobin stable above 7.0, no further tarry bowel movements or obvious bleeding, no further transfusions at this time. Discontinue NSAIDs. Protonix gtt changed to daily po. Crohn's disease - continue mesalamine, methylprednisolone, Zosyn and Flagyl. DVT prophylaxis: low risk, unable to take heparin due to GI bleed, encourage ambulation. (Neeru Anthony CRNP) MANAGER MARKETING Physician Supervision Note: I interviewed and examined the patient. Discussed with Queta Anthony NP and agree with findings and plan as documented in the note. Any exceptions or clarifications are listed here: None Patient presented with marked anemia and concurrent nonsteroidal use with a history of Crohn's disease and some melena, he underwent upper endoscopy with did not show any confirms source of bleeding, repeat abdomen and pelvis CT scan did not show any intra-abdominal pathology but evidence of perhaps some small bowel inflammation was seen regarding his Crohn's disease. Patient was transfused 2 units packed red blood cells he converted from her protonic drip to a bolus of Protonix.\ The patient's vital signs are stable post procedure he is tolerating an oral diet Abdominal exam is soft nontender with exception of very mild discomfort in the area and left the umbilicus no rebound This patient be continued on proton pump inhibitor his hemoglobin was watched in the morning if he remains stable and his symptoms are significant outpatient follow-up with GI might be arranged avoiding nonsteroidals in the future would be helpful Documented By: Que Jackson (Que Jackson M.D.)
--- NOTE | 2016-12-25 11:48 | DIAGNOSTIC IMAGING REPORT ---
ABD/PELVIS IV AND ORAL CONT CT DOSE: 500.13 mGycm HISTORY: Inflammatory bowel change Crohn's Disease TECHNIQUE: Multiaxial CT images of the abdomen and pelvis were performed following the use of intravenous and oral contrast. A dose lowering technique was utilized adhering to the principles of ALARA. COMPARISON STUDY: 04/01/2016 FINDINGS: Lung bases show minimal dependent basilar atelectasis. Lung bases otherwise are clear. Mild fatty infiltration of liver. Gallbladder is negative for distention. Pancreas is uniform. Kidneys enhance appropriately. Spleen is unremarkable. Bowel pattern remains similar compared to the prior study. Wall thickening of the distal ileum began estimated at 20 to 30 cm a similar. This does not create significant obstructive changes. There is a mild infiltrative change of the surrounding fat similar compared to the prior study. A well-defined fistula, however is not easily appreciated. Bladder is midline. Colon is considered nondistended. IMPRESSION: 1. No major change compared to the prior study. 2. Long segment distal ileum with evidence for wall thickening and mild hyperemic change. 3. This again is consistent with that of stable inflammatory bowel change and/or Crohn's. 4. No evidence for well-defined fistula. 5. Stable fatty infiltration of liver. The above report was generated using voice recognition software. It may contain grammatical, syntax or spelling errors. Electronically signed by: Zen Medina M.D. 12/25/2016 11:46 AM Dictated Date/Time: 12/25/2016 11:40 AM
[2016-12-25] MEDS ORDERED: ACETAMINOPHEN 325 MG TAB PO PRN (13:00)
[2016-12-25] MEDS ORDERED: BUTALBITAL/ACETAMIN/CAFFEINE TAB PO PRN (20:15)
[2016-12-25] MEDS: METHYLPREDNISOLONE IV 40 MG in SYRINGE 0 ML IV SCH (21:04)
[2016-12-25] MEDS ORDERED: ZOLPIDEM TARTRATE 5 MG TAB PO PRN (23:45)
[2016-12-26 04:00] VITALS: BP 98/61; PULSE 81; TEMP 36.7; O2SAT 95
[2016-12-26] MEDS: PIPERACILL/TAZOBAC IV 3.375 GM in DEXTROSE 5% 100ML 100 ML IV SCH ×2 (04:30→11:49)
[2016-12-26] MEDS: SODIUM CHLORIDE 0.9% 1000ML 1,000 ML IV SCH (04:30)
[2016-12-26 05:43] LABS: IG% 0.3 %; LYMPH % 9.4 %; LYMPH ABS # 1.48 K/uL (1.2-3.4); MEAN CELL VOLUME 72.2 fL (80-100); MEAN CORPUSCULAR HEMOGLOBIN 21.9 pg (25-34); MEAN CORPUSCULAR HGB CONC 30.4 g/dl (32-36); MEAN PLATELET VOLUME 8.8 fL (7.4-10.4); NEUT % 85.3 %; PLATELET COUNT 499 K/uL (130-400); RED BLOOD COUNT 3.74 M/uL (4.7-6.1); WHITE BLOOD COUNT 15.71 K/uL (4.8-10.8)
[2016-12-26] MEDS: METRONIDAZOLE / NSS 500 MG in PREMIXED NSS 100 ML IV SCH (06:04)
[2016-12-26 06:17] LABS: BUN/CREATININE RATIO 12.5 (10-20); CALCIUM 7.9 mg/dl (8.5-10.1); CREATININE 0.73 mg/dl (0.60-1.40); POTASSIUM 3.7 mmol/L (3.5-5.1)
[2016-12-26 06:53] LABS: ANISOCYTOSIS PRESENT; COMPLETE YES; HYPERSEGMENTED POLYS 1+; HYPOCHROMIA PRESENT; MICROCYTOSIS PRESENT
[2016-12-26] MEDS: MESALAMINE 250 MG CAPCR PO SCH (07:42)
[2016-12-26] MEDS: METHYLPREDNISOLONE IV 40 MG in SYRINGE 0 ML IV SCH (07:42)
--- NOTE | 2016-12-26 08:39 | Hospitalist Progress Note ---
Hospitalist Progress Note Date of Service Dec 26, 2016. Subjective Pt evaluation today including: conversation w/ patient, conversation w/ family , physical exam, chart review, lab review, conversation w/ senior management consultant, review of inpatient medication list Voiding: no voiding problems Mr. Mejia is feeling well today and mostly back to baseline except for some fatigue. He does not have abdominal pain and has not had any bowel movements today or over the night. Constitutional: + see HPI Respiratory: No cough, No shortness of breath, No dyspnea on exertion Cardiovascular: No chest pain, No palpitations Abdomen: No pain, No nausea, No vomiting, No diarrhea, No constipation, No GI bleeding All Other Systems: Reviewed and Negative Medications Medications (Trade) Dose Ordered Sig/Cheo Route Start Time Stop Time Status Last Admin Dose Admin Methylprednisolone Sodium Succinate 40 mg/Syringe 0.64 ml @ 1.5 mls/min BID IV 12/25/16 21:00 12/26/16 15:18 DC 12/26/16 07:42 1.5 MLS/MIN Pantoprazole Sodium (Protonix Tab) 40 mg QAM PO 12/26/16 09:00 12/26/16 15:18 DC 12/26/16 07:42 40 MG Acetaminophen/ Butalbital/ Caffeine (Fioricet Tab) 1 tab Q4H PRN PO 12/25/16 20:15 12/26/16 15:18 DC 12/25/16 21:03 1 TAB Zolpidem Tartrate (Ambien Tab) 5 mg HS PRN PO 12/25/16 23:45 12/26/16 15:18 DC 12/26/16 00:35 5 MG Objective Vital Signs Date Time Temp Pulse Resp B/P (MAP) Pulse Ox O2 Delivery O2 Flow Rate FiO2 12/26/16 04:00 Room Air 12/26/16 04:00 36.7 81 16 98/61 (73) 95 Room Air 12/26/16 00:00 Room Air 12/25/16 23:51 36.7 77 18 108/65 (79) 95 Room Air 12/25/16 21:03 36.9 89 18 106/71 (83) 96 Room Air 12/25/16 20:00 Room Air 12/25/16 16:00 Room Air 12/25/16 15:47 36.9 93 18 104/68 (80) 97 Room Air 12/25/16 12:30 Room Air 12/25/16 11:05 36.9 97 18 117/76 (90) 98 12/25/16 09:27 86 18 108/72 (84) 99 Room Air 12/25/16 09:12 82 18 111/75 (87) 98 Room Air 12/25/16 08:57 93 18 99/69 (79) 97 Room Air Physical Exam Notes: General: no distress Eyes: normal inspection, PERLL Respiratory: chest non tender, clear to auscultation, normal breath sounds, no respiratory distress, no accessory muscle use Cardiac: regular rate and rhythm, no rub or gallop, no murmur, no edema, no jvd GI/: active bowel sounds, no abd pain or tenderness, soft, non distended Extremities: normal range of motion, normal strength, non tender Neuro/Psych: alert and oriented x 3, normal mood and affect Skin: normal color, dry Laboratory Results Last 24 Hours Test 12/26/16 05:32 White Blood Count 15.71 K/uL Red Blood Count 3.74 M/uL Hemoglobin 8.2 g/dL Hematocrit 27.0 % Mean Corpuscular Volume 72.2 fL Mean Corpuscular Hemoglobin 21.9 pg Mean Corpuscular Hemoglobin Concent 30.4 g/dl Platelet Count 499 K/uL Mean Platelet Volume 8.8 fL Neutrophils (%) (Auto) 85.3 % Lymphocytes (%) (Auto) 9.4 % Monocytes (%) (Auto) 5.0 % Eosinophils (%) (Auto) 0.0 % Basophils (%) (Auto) 0.0 % Neutrophils # (Auto) 13.40 K/uL Lymphocytes # (Auto) 1.48 K/uL Monocytes # (Auto) 0.78 K/uL Eosinophils # (Auto) 0.00 K/uL Basophils # (Auto) 0.00 K/uL RDW Standard Deviation 50.9 fL RDW Coefficient of Variation 19.2 % Immature Granulocyte % (Auto) 0.3 % Immature Granulocyte # (Auto) 0.05 K/uL Nucleated RBC Absolute Count (auto) 0.04 K/uL Nucleated Red Blood Cells % 0.2 % Hypersegmented Polys 1+ Hypochromasia PRESENT Anisocytosis PRESENT Microcytosis PRESENT Sodium Level 143 mmol/L Potassium Level 3.7 mmol/L Chloride Level 112 mmol/L Carbon Dioxide Level 26 mmol/L Anion Gap 5.0 mmol/L Blood Urea Nitrogen 9 mg/dl Creatinine 0.73 mg/dl Est Creatinine Clear Calc Drug Dose 128.8 ml/min Estimated GFR () 134.5 Estimated GFR (Non- 116.0 BUN/Creatinine Ratio 12.5 Random Glucose 146 mg/dl Calcium Level 7.9 mg/dl Assessment and Plan Mr. Mejia is a 41 year old man here for anemia due to GI bleed presenting with H &H 6.1&19.9, dark tarry stools x 1 week, and history of Crohn's disease as well as two weeks of NSAID use for wisdom teeth pain. Acute blood loss anemia due to GI bleed - received 2 units PRBCs 12/24, hemoglobin stable above 7.0, no further tarry bowel movements or obvious bleeding, no further transfusions at this time. Discontinue NSAIDs. Protonix gtt changed to daily po. Crohn's disease - stable, he has tenderness but no abdominal pain or diarrhea. Continue mesalamine, switch to po steroids per GI, d/c antibiotics To discharge today as H&H is stable and he is largely symptom free. DVT prophylaxis: low risk, unable to take heparin due to GI bleed, encourage ambulation.
[2016-12-26] MEDS ORDERED: PANTOprazole SOD 40 MG TAB PO SCH (09:00)
--- NOTE | 2016-12-26 09:25 | Gastroenterology Progress Note ---
Progress Note Date of Service: Dec 26, 2016 Subjective Pt evaluation today including: conversation w/ patient, physical exam, chart review, lab review, review of studies Patient is a 41 yo male hospitalized with acute anemia. The patient has a history of Crohn's Disease on Remicade. Due significant disease of his ileum noted on multiple CT enterography studies, he was recently sent for evaluation by Dr. Chao of colorectal surgery. It was recommended that the patient undergo resection, however he refused. He has been taking NSAIDs frequently due to an infected tooth. His EGD yesterday was unremarkable. His H/H has improved with transfusion to 8.2/27.0. There are no overt signs of GI bleeding. Review of Systems Constitutional: No fever, No chills Eyes: No problem reported Respiratory: No cough, No shortness of breath Cardiac: No chest pain Abdomen: + pain, No nausea, No vomiting, No diarrhea, No constipation, No GI bleeding Musculoskeletal: No joint pain Neuro: No problem reported Skin: No problem reported Medications Current Inpatient Medications Medications (Trade) Dose Ordered Sig/Cheo Route Start Time Stop Time Status Last Admin Dose Admin Sodium Chloride 1,000 ml @ 100 mls/hr Q10H IV 12/24/16 13:00 01/23/17 12:59 12/26/16 04:30 100 MLS/HR Ondansetron HCl (Zofran Inj) 4 mg Q6H PRN IV 12/24/16 11:30 01/23/17 11:29 Mesalamine (Pentasa Controlled Rel Cap) 1,500 mg BID PO 12/24/16 21:00 01/23/17 20:59 12/26/16 07:42 1,500 MG Piperacillin Sod/ Tazobactam Sod 3.375 gm/Dextrose 115 ml @ 28.75 mls/ hr Q8H IV 12/24/16 20:00 01/03/17 19:59 12/26/16 04:30 28.75 MLS/HR Metronidazole 500 mg/Prmx 100 ml @ 100 mls/hr Q8H IV 12/24/16 14:00 01/03/17 13:59 12/26/16 06:04 100 MLS/HR Piperacillin Sod/ Tazobactam Sod (Consult) 1 ea UD PRN N/A 12/24/16 13:00 01/23/17 12:59 Methylprednisolone Sodium Succinate 40 mg/Syringe 0.64 ml @ 1.5 mls/min BID IV 12/25/16 21:00 01/24/17 20:59 12/26/16 07:42 1.5 MLS/MIN Ioversol (Optiray 320) 100 ml UD PRN IV 12/25/16 09:15 12/29/16 09:14 Pantoprazole Sodium (Protonix Tab) 40 mg QAM PO 12/26/16 09:00 01/25/17 08:59 12/26/16 07:42 40 MG Acetaminophen (Tylenol Tab) 650 mg Q4H PRN PO 12/25/16 13:00 01/24/17 12:59 12/25/16 13:15 650 MG Acetaminophen/ Butalbital/ Caffeine (Fioricet Tab) 1 tab Q4H PRN PO 12/25/16 20:15 01/24/17 20:14 12/25/16 21:03 1 TAB Zolpidem Tartrate (Ambien Tab) 5 mg HS PRN PO 12/25/16 23:45 01/24/17 23:44 12/26/16 00:35 5 MG Objective Vital Signs Date Time Temp Pulse Resp B/P (MAP) Pulse Ox O2 Delivery O2 Flow Rate FiO2 12/26/16 04:00 Room Air 12/26/16 04:00 36.7 81 16 98/61 (73) 95 Room Air 12/26/16 00:00 Room Air 12/25/16 23:51 36.7 77 18 108/65 (79) 95 Room Air 12/25/16 21:03 36.9 89 18 106/71 (83) 96 Room Air 12/25/16 20:00 Room Air 12/25/16 16:00 Room Air 12/25/16 15:47 36.9 93 18 104/68 (80) 97 Room Air 12/25/16 12:30 Room Air 12/25/16 11:05 36.9 97 18 117/76 (90) 98 12/25/16 09:27 86 18 108/72 (84) 99 Room Air Physical Exam General Appearance: WD/WN, no apparent distress Eyes: normal inspection, PERRL Respiratory/Chest: lungs clear, normal breath sounds Cardiovascular: regular rate, rhythm Abdomen: normal bowel sounds, non tender, soft Extremities: non-tender Neurologic/Psych: alert, oriented x 3 Skin: normal color Laboratory Results Last 24 Hours Test 12/26/16 05:32 12/26/16 08:36 White Blood Count 15.71 K/uL Red Blood Count 3.74 M/uL Hemoglobin 8.2 g/dL Hematocrit 27.0 % Mean Corpuscular Volume 72.2 fL Mean Corpuscular Hemoglobin 21.9 pg Mean Corpuscular Hemoglobin Concent 30.4 g/dl Platelet Count 499 K/uL Mean Platelet Volume 8.8 fL Neutrophils (%) (Auto) 85.3 % Lymphocytes (%) (Auto) 9.4 % Monocytes (%) (Auto) 5.0 % Eosinophils (%) (Auto) 0.0 % Basophils (%) (Auto) 0.0 % Neutrophils # (Auto) 13.40 K/uL Lymphocytes # (Auto) 1.48 K/uL Monocytes # (Auto) 0.78 K/uL Eosinophils # (Auto) 0.00 K/uL Basophils # (Auto) 0.00 K/uL RDW Standard Deviation 50.9 fL RDW Coefficient of Variation 19.2 % Immature Granulocyte % (Auto) 0.3 % Immature Granulocyte # (Auto) 0.05 K/uL Nucleated RBC Absolute Count (auto) 0.04 K/uL Nucleated Red Blood Cells % 0.2 % Hypersegmented Polys 1+ Hypochromasia PRESENT Anisocytosis PRESENT Microcytosis PRESENT Sodium Level 143 mmol/L Potassium Level 3.7 mmol/L Chloride Level 112 mmol/L Carbon Dioxide Level 26 mmol/L Anion Gap 5.0 mmol/L Blood Urea Nitrogen 9 mg/dl Creatinine 0.73 mg/dl Est Creatinine Clear Calc Drug Dose 128.8 ml/min Estimated GFR () 134.5 Estimated GFR (Non- 116.0 BUN/Creatinine Ratio 12.5 Random Glucose 146 mg/dl Calcium Level 7.9 mg/dl Assessment and Plan Patient is a 41 yo male with Crohn's disease who presented with severe abdominal pain and acute anemia requiring transfusion. EGD was unremarkable and a CT scan indicated persistent abnormalities of the terminal ileum for which he has previously been advised to have a resection. 1) Continue Remicade 5 mg/kg q 6 weeks. 2) Again, recommend he follow-through with the colorectal surgeon's recommendations for surgical resection of the terminal ileum. 3) Can convert IV steroids to po Prednisone on discharge. Would recommend a taper beginning at 40 mg po daily for 1 week, then decrease by 5 mg weekly for 8 week course. 4) Recommend complete avoidance of NSAID therapies. 5) Patient continues to take Pentasa as an outpatient though given the extent of his disease, it is doubtful that this medication is providing any benefit. 6) Continue PPI therapy with Protonix 40 mg daily on discharge. 7) Supportive care and discharge planning per primary team. Thank you for allowing us to participate in the care of this patient. If you should have any further questions, do not hesitate to contact us. Patient was discharged prior to my evaluation
[2016-12-26 09:48] LABS: ESTIMATED AVERAGE GLUCOSE 120 mg/dl; HA1C FLAG Normal (Normal)
[2016-12-26 11:08] VITALS: BP 126/76; PULSE 92; TEMP 36.7; O2SAT 97
[2016-12-26 12:19] LABS: HEMATOCRIT 28.7 % (42-52); MEAN CELL VOLUME 71.6 fL (80-100); MEAN CORPUSCULAR HEMOGLOBIN 22.4 pg (25-34); MEAN CORPUSCULAR HGB CONC 31.4 g/dl (32-36); MEAN PLATELET VOLUME 9.1 fL (7.4-10.4); PLATELET COUNT 554 K/uL (130-400); RED BLOOD COUNT 4.01 M/uL (4.7-6.1); WHITE BLOOD COUNT 17.16 K/uL (4.8-10.8)
[2016-12-26] MEDS ORDERED: PRT40 PO (12:49)
--- NOTE | 2016-12-26 12:49 | Discharge Instructions ---
Discharge Instructions Date of Service Dec 26, 2016. 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 Instructions / Follow-Up Instructions / Follow-Up Dr. Michelle's office will follow up with an appointment for a GI surgeon\\ Discontinue further NSAID use Current Hospital Diet Patient's current hospital diet: Regular Diet Discharge Diet Recommended Diet: Regular Diet Procedures Procedures Performed: EGD Pending Studies Studies pending at discharge: no Laboratory Results Hemoglobin A1c Test 12/26/16 08:36 Range/Units Estimated Average Glucose 120 mg/dl Hemoglobin A1c 5.8 H 4.5-5.6 % A1c was mildly elevated, please follow up with primary care provider. Medical Emergencies . Who to Call and When: Medical Emergencies: If at any time you feel your situation is an emergency, please call 911 immediately. . Non-Emergent Contact Non-Emergency issues call your: Primary Care Provider Call Non-Emergent contact if: temperature is above 100.5, your pain is not controlled, your pain is worsening, you have any medication questions . Past History Medical & Surgical History: (1) GIB (gastrointestinal bleeding) (2) Anemia (3) Crohn's disease, unspecified, without complications . "Provider Documentation" section prepared by Neeru Anthony. . VTE Core Measure Inpt VTE Proph given/why not?: Treatment not indicated (ambulatory, not a candidate for chemical anticoagulation)
[2016-12-26 12:52] VITALS: BP 129/80; PULSE 97; TEMP 37; O2SAT 97
[2016-12-26 13:01] VITALS: O2SAT 97
[2016-12-26] MEDS ORDERED: PRD5 PO (13:04)
[2016-12-26 13:34] VITALS: BP 129/80; PULSE 97; TEMP 37; O2SAT 97
--- NOTE | 2016-12-27 08:35 | Discharge Summary ---
Discharge Summary Date of Service Dec 27, 2016. Discharge Summary Admission Date: Dec 24, 2016 at 12:11 Discharge Date: Dec 26, 2016 Discharge Disposition: Home Principal Diagnosis: GI bleed, Crohn's disease Problems/Secondary Diagnoses: Procedures: EGD: Findings: The esophagus was normal. The stomach was normal. The examined duodenum was normal CT Abd/Pelvis with contrast: Impression: 1. No major change compared to the prior study. 2. Long segment distal ileum with evidence for wall thickening and mild hyperemic change. 3. This again is consistent with that of stable inflammatory bowel change and/or Crohn's. 4. No evidence for well-defined fistula. 5. Stable fatty infiltration of liver. Chest/Abdomen Xray 2 view Impression: No evidence of bowel obstruction. No evidence of free air. Consultations: Dr. Michelle for GI Medication Reconciliation New Medications: Prednisone (Prednisone) 5 Mg Tab 5 MG PO UD for 56 Days, #255 TAB 40 mg po daily x 1 week and then decrease by 5 mg per week for 8 weeks Take full daily dose at one time. Pantoprazole (Pantoprazole Sodium) 40 Mg Tab 40 MG PO QAM for 30 Days, #30 TAB Continued Medications: Cholecalciferol (Vitamin D) 2,000 Unit Tab 1 TAB PO QAM Infliximab (Remicade) 100 Mg/10 Ml Inj Unknown Dose IV Q6WK Mesalamine (Pentasa) 500 Mg Caper 1500 MG PO BID, CAP Probiotic Product (Probiotic) 1 Cap Cap 1 CAP PO QAM [iron] () IV DIRECTED Discharge Exam Review of Systems: Constitutional: No chills, No sweats Respiratory: No cough, No shortness of breath Cardiovascular: No chest pain, No palpitations Abdomen: No nausea, No vomiting, No diarrhea, No constipation, No GI bleeding Physical Exam: General Appearance: WD/WN Respiratory/Chest: chest non-tender, lungs clear, normal breath sounds, no respiratory distress, no accessory muscle use Cardiovascular: regular rate, rhythm, no edema, no murmur Abdomen / GI: normal bowel sounds, non tender, soft Neurologic/Psychiatric: alert, normal mood/affect, normal reflexes Skin: normal color, warm/dry Hospital Course Mr. Mejia is a 41 year old man here for anemia due to GI bleed presenting with H &H 6.1&19.9, dark tarry stools x 1 week, and history of Crohn's disease as well as two weeks of NSAID use for wisdom teeth pain. Acute blood loss anemia due to GI bleed - received 2 units PRBCs 12/24, hemoglobin stable above 7.0, no further tarry bowel movements or obvious bleeding, no further transfusions at this time. Discontinue NSAIDs. Protonix gtt changed to daily po. Crohn's disease - stable, he has tenderness but no abdominal pain or diarrhea. Continue mesalamine, switch to po steroids per GI, d/c antibiotics DVT prophylaxis: low risk, unable to take heparin due to GI bleed, encourage ambulation. Total Time Spent: Less than 30 minutes This includes examination of the patient, discharge planning, medication reconciliation, and communication with other providers. Discharge Instructions Please refer to the electronic Patient Visit Report (Discharge Instructions) for additional information.
--- NOTE | 2016-12-31 08:26 | EDITING REQUIRED CODING QUERY ---
CODING QUERY To promote full compliance with coding requirements relating to patient care, provider participation is requested in all cases of health information coder uncertainty. Please assist us with the question(s) below: Coding Question(s): Please clarify below, in your clinical opinion, regarding the likely etiology of the GI bleed. ( ) GI bleed was likely an adverse effect of the NSAID use ( ) GI bleed was likely from bleeding from Crohn's disease exacerbation ( XXX )Unknown etiology of GI bleed Physician's Response(s): Thank you Lizet Albarado Principal Diagnosis: "_that condition established after study, to be chiefly responsible for occasioning the admission of the patient to the hospital for care." Co-Existing Principal Diagnosis: "_when two or more diagnoses equally meet the criteria for principal diagnosis as determined by the circumstances of admission, diagnostic work up, and/or therapy provided, and the Alphabetic Index, Tabular List, or another coding guideline does not provide sequencing direction, any one of the diagnoses may be sequenced first." "When the physician has documented what appears to be a current diagnosis in the body of the record, but has not included the diagnosis in the final diagnostic statement, the physician should be asked whether the diagnosis should be added." (Source [facility]oding [facility] 2 QTR90. p3-4)
[2017-01-10] MEDS ORDERED: ASCOCRY2 (13:41)
== END 2016-12-26 15:18 | disposition home or self-care (01) | DRG 378 ==
LOC: C.EDB 09:34 → ENRESERV 11:54 → CANRESERV 11:54 → ENRESERV 12:05 → C.MED 12:11
PROVIDERS: ADMIT Hospitalist; ATTEND Internal Medicine
PROC: 0DJ08ZZ Inspection of Upper Intestinal Tract, Via Natural or Artificial Opening Endoscopic (ICD-10-PCS; principal; 2016-12-25 08:29)
DX: K92.2 Gastrointestinal hemorrhage, unspecified (principal); D62 Acute posthemorrhagic anemia; K50.918 Crohn's disease, unspecified, with other complication; Z79.899 Other long term (current) drug therapy; Z87.891 Personal history of nicotine dependence

== ENCOUNTER → 2017-01-02 | Outpatient (CLI) | payer BC ==
[~2017-01-02] MED LIST changes: +ASCOCRY2; -IBUP-1459 PO; +PRD5 PO; +PRT40 PO; +RMCI IV
[2017-01-02 12:09] LABS: BASO % 0.1 %; BASO ABS # 0.01 K/uL (0-0.2); HEMATOCRIT 31.1 % (42-52); IG% 0.3 %; LYMPH % 13.5 %; LYMPH ABS # 1.46 K/uL (1.2-3.4); MEAN CELL VOLUME 71.3 fL (80-100); MEAN CORPUSCULAR HEMOGLOBIN 21.3 pg (25-34); MEAN CORPUSCULAR HGB CONC 29.9 g/dl (32-36); MONO % 1.9 %; NEUT % 84.2 %; PLATELET COUNT 612 K/uL (130-400); RED BLOOD COUNT 4.36 M/uL (4.7-6.1); WHITE BLOOD COUNT 10.78 K/uL (4.8-10.8)
[2017-01-02 12:45] LABS: FERRITIN 2.3 ng/ml (8.0-388.0)
[2017-01-02 12:47] LABS: ANISOCYTOSIS PRESENT; COMPLETE YES; HYPERSEGMENTED POLYS 1+; MICROCYTOSIS PRESENT
== END | disposition home or self-care (01) ==
LOC: C.LAB1850 11:09
PROVIDERS: ATTEND Nurse Practitioner Adult Health
DX: K50.90 Crohn's disease, unspecified, without complications (principal); D50.8 Other iron deficiency anemias

== ENCOUNTER → 2017-01-21 | Outpatient (CLI) | payer BC ==
[2017-01-21 15:36] LABS: HEMATOCRIT 38.7 % (42-52); MEAN CELL VOLUME 77.6 fL (80-100); MEAN CORPUSCULAR HGB CONC 29.7 g/dl (32-36); MEAN PLATELET VOLUME 9.2 fL (7.4-10.4); PLATELET COUNT 603 K/uL (130-400); RED BLOOD COUNT 4.99 M/uL (4.7-6.1); WHITE BLOOD COUNT 12.36 K/uL (4.8-10.8)
== END | disposition home or self-care (01) ==
LOC: C.LAB1850 14:22
PROVIDERS: ATTEND Nurse Practitioner Adult Health
DX: D50.8 Other iron deficiency anemias (principal)

== ENCOUNTER → 2017-04-04 | Outpatient (CLI) | payer BC ==
[~2017-04-04] MED LIST changes: +ADAL40KI INJ; +CALC-51 PO; +CPR500 PO; +FERR1TAB62 PO; +MTR500 PO; +PANT1TAB4 PO; +PRD20 PO; +PRED10TA PO; -PRT40 PO; +VITAMIN B12 PO
[2017-04-04 13:08] LABS: BASO % 0.5 %; BASO ABS # 0.04 K/uL (0-0.2); EOS % 2.5 %; HEMATOCRIT 46.5 % (42-52); HEMOGLOBIN 15.3 g/dL (14.0-18.0); IG# 0.02 K/uL (0.00-0.02); LYMPH % 19.2 %; LYMPH ABS # 1.54 K/uL (1.2-3.4); MEAN CELL VOLUME 85.8 fL (80-100); MEAN CORPUSCULAR HEMOGLOBIN 28.2 pg (25-34); MEAN CORPUSCULAR HGB CONC 32.9 g/dl (32-36); MEAN PLATELET VOLUME 9.3 fL (7.4-10.4); MONO % 12.8 %; MONO ABS # 1.03 K/uL (0.11-0.59); NEUT % 64.8 %; NEUT ABS # 5.19 K/uL (1.4-6.5); PLATELET COUNT 339 K/uL (130-400); RED CELL DISTRIBUTION WIDTH CV 15.5 % (11.5-14.5); RED CELL DISTRIBUTION WIDTH SD 44.3 fL (36.4-46.3); WHITE BLOOD COUNT 8.02 K/uL (4.8-10.8)
[2017-04-04 13:41] LABS: ALBUMIN 3.2 gm/dl (3.4-5.0); ALT/SGPT 20 U/L (12-78); AST/SGOT 14 U/L (15-37); BLOOD UREA NITROGEN 10 mg/dl (7-18); CALCIUM 8.9 mg/dl (8.5-10.1); CARBON DIOXIDE 31 mmol/L (21-32); CREATININE 0.71 mg/dl (0.60-1.40); GLUCOSE 76 mg/dl (70-99); POTASSIUM 3.4 mmol/L (3.5-5.1); SODIUM 136 mmol/L (136-145)
[2017-04-04 13:47] LABS: ALKALINE PHOSPHATASE 80 U/L (45-117); TOTAL PROTEIN 7.3 gm/dl (6.4-8.2); TRANSFERRIN 220 mg/dl (200-360)
== END | disposition home or self-care (01) ==
LOC: C.LAB1850 12:18
PROVIDERS: ATTEND Physician Assistant
DX: D64.9 Anemia, unspecified (principal); K50.90 Crohn's disease, unspecified, without complications

== ENCOUNTER 2024-12-08 11:16 | Inpatient (IN) ==
--- NOTE | 2024-12-08 12:14 | CT Scan Report ---
CT SCAN OF THE BRAIN WITHOUT IV CONTRAST CLINICAL HISTORY: Vertigo COMPARISON STUDY: MRI the brain dated 12/12/2023 TECHNIQUE: Unenhanced axial CT scan of the brain was performed from the vertex to the skull base. A dose lowering technique was utilized adhering to the principles of ALARA. CT DOSE: 625.8 mGy.cm FINDINGS: No intra or extra-axial mass lesions are visualized. There is no CT evidence of acute cortical infarction. There is no evidence of acute hemorrhage. Note is made of slight increased density of the tentorium, but this is unlikely to be related to acute hemorrhage given its symmetry and the patient's clinical presentation. The ventricular system is of normal size and configuration for age. Note is made of prominent pineal calcification. There is persistent complete opacification of the right maxillary sinus. IMPRESSION: No acute intracranial findings. ACT 112: Negative or not required by law. Electronically signed by: Ron Hopson M.D. 12/08/2024 12:12 PM
--- NOTE | 2024-12-08 12:59 | XRay Report ---
XR chest 1V not portable CLINICAL HISTORY: vertigo COMPARISON STUDY: 02/05/2024 FINDINGS: The heart is normal in size. There is no failure. There is no focal pulmonary consolidation . No pleural effusions are visualized. IMPRESSION: No active disease in the chest. ACT 112: Negative or not required by law. Electronically signed by: Ron Hopson M.D. 12/08/2024 12:57 PM
[2024-12-08 13:01] LABS: Alanine Aminotransferase 18.0 U/L (7-52); Albumin Globulin Ratio 1.1 (0.9-2); Alkaline Phosphatase 117.0 U/L (34-104); Anion Gap 10.0 (3-11); Bilirubin,Total 1.0 mg/dl (0.2-1.0); Blood Urea Nitrogen 9.0 mg/dl (6-23); Calcium 10.1 mg/dl (8.6-10.3); Carbon Dioxide 25.0 mmol/L (21-32); Chloride 102.0 mmol/L (98-107); Creatinine Clr Calc Pharmacy 101.6 ml/min; Globulin 4.0 gm/dl (2.5-4.0); Glucose 120.0 mg/dl (70-99(Fasting)); Potassium 3.9 mmol/L (3.5-5.1); Sodium 137.0 mmol/L (136-145); Total Protein 8.5 gm/dl (6.0-8.3)
--- NOTE | 2024-12-08 13:17 | Emergency Department Note ---
Impression & Plan Vertebral artery dissection, Vertigo, Neck pain on left side, Crohns disease ED Provider Note CHIEF COMPLAINT: Neuro symptoms HISTORY OF PRESENTING ILLNESS: This 49-year-old male patient presents to the emergency department with his for evaluation of different neurologic symptoms. The patient states that 3 weeks ago he was sitting in his car and developed a sharp burning pain to the back of his neck and felt a pop. However, there was no direct injury, trauma, or quick turning of his neck at that time. The next day he started with increased pain and swelling to the left side of the neck and back. The patient followed up with his PCP in regards to the neck and back pain. Per his PCP visit on 11/25/2024, the patient had been treated with a course of prednisone 40 mg x 5 days with only mild improvement of the symptoms. The patient was also given Flexeril without improvement of his symptoms. However, the patient states that over the past day or so his shoulder and neck pain has improved somewhat. The patient states that he woke up at 6:30 am this morning with the room spinning, dizziness, and felt like his bilateral hands were tingling. He states that he almost fell over from the dizziness, but did not fall or pass out. His dizziness has continued and he is having trouble being upright from the symptoms. He also felt sweaty this morning and has had nausea without vomiting. He tried to vomit without success. He denies any abdominal pain. He states that his whole body feels weak. He denies any fevers, cough, or URI symptoms. Denies any nasal congestion or sinus symptoms. Denies any chest pain or SOB. Denies any urinary symptoms. The patient has a history of Crohn's disease that has been well-controlled on Skyrizi. He states that his BMs are at baseline for his Crohn's Disease. Had a small amount of rectal bleeding 2 weeks ago, but none since. The patient did notice a small red dot near his left nipple a couple days ago. He also has a rash to the right outer lower leg after working outside. He states that he typically gets the rash to his leg after working outside. However, the red dot near his nipple is new. The patient has a history of a GI bleed in 2019 after NSAID use for dental pain that lasted 1 month prior to dental intervention. The patient had a significant amount of his small bowel and colon removed in 2019 per patient secondary to his Crohn's Disease. He follows with [facility]. REVIEW OF SYSTEMS: See HPI for pertinent positives and pertinent negatives. ALLERGIES: NSAIDs, cat dander MEDICATIONS: See below PAST MEDICAL HISTORY: See below PHYSICAL EXAM: VITALS: Vitals are noted on the nurse's note and reviewed by myself. GENERAL: No acute distress, non-diaphoretic. SKIN: The patient has a singular erythematous blanching papule to the medial side of the left nipple. No vesicle, pustule, petechiae, purpura, discharge, fluctuance, or induration. The patient also has an erythematous blanching macular rash to the lateral aspect of the right lower leg. No vesicles, pustule, petechiae, purpura, discharge, fluctuance, or induration. Capillary reflex less than 2 seconds. HEAD: No scalp tenderness. No step-offs felt. EYES: Pupils equal round and reactive to light and accommodation. Conjunctivae without injection, sclerae without icterus. Extraocular movements intact without pain. No nystagmus. NOSE: Patent, turbinates without inflammation or discharge. No sinus tenderness. No septal hematoma or bleeding. FACE: No facial droop. MOUTH: Mucous membranes moist. Uvula midline. Airway patent. Tongue does not deviate. NECK: Supple without nuchal rigidity. Cervical spine is nontender. Full range of motion of the neck without tenderness and normal strength. HEART: Regular rate and rhythm without murmurs gallops or rubs. LUNGS: Clear to auscultation bilaterally without wheezes, rales or rhonchi. No retractions or accessory muscle use. No chest wall tenderness. ABDOMEN: Positive bowel sounds x 4. Normal tympanic percussion. Soft, nontender to palpation. No masses or hepatosplenomegaly. No guarding or rebound tenderness. No focal RLQ or LLQ tenderness. MUSCULOSKELETAL: No tenderness of the thoracic or lumbar spine or paraspinal muscles. Full range of motion of the bilateral upper and lower extremities. Strength 5/5 and equal bilaterally in the upper and lower extremities. Peripheral pulses 2+ and equal in the bilateral upper and lower extremities. NEURO: Patient was alert and oriented to person place and time. Normal mental status exam. Normal sensation to light and sharp touch. []. DIFFERENTIAL DIAGNOSIS: Differential diagnosis includes benign positional vertigo, dehydration, hypovolemia, anemia, tumor, infection, hypoglycemia, electrolyte abnormalities, cardiac sources, intracerebral event, toxicologic, neurologic, as well as other pathologies. ED COURSE AND MEDICAL DECISION MAKING: HISTORY FROM INDEPENDENT HISTORIAN: Additional history obtained from the patient's MEDICATIONS GIVEN: 1 L normal saline solution bolus. Meclizine 25 mg p.o. 81 mg aspirin p.o. MONITOR: Continuous monitoring and evaluation advisor: Order was placed for continuous monitoring and evaluation advisor. Patient was placed on the monitoring and evaluation advisor and continuous pulse ox. Patient was noted to be in normal sinus rhythm at an initial rate of 80 bpm per my interpretation. EKG: EKG was interpreted by myself as normal sinus rhythm at 94 bpm with no acute ST or T wave changes. INTERPRETATION OF LABS: I interpreted the labs with full lab results as below in the lab section of this note. Laboratory results pertinent to the emergent complaint are discussed in the MDM section below. The patient was advised to follow up with their PCP and/or specialist(s) for further outpatient monitoring and management of any abnormal results. INTERPRETATION OF IMAGING: Imaging studies were interpreted by myself and read by radiology as per the imaging section of this note. The patient was advised to follow up with their PCP and/or specialist(s) for further outpatient management of any non-emergent abnormal findings. Chest x-ray negative for acute cardiopulmonary etiology. CT scan of the head without contrast was negative for acute intracranial abnormality. CTA of the head with IV contrast showed no acute abnormalities. CTA of the neck with IV contrast showed a very short segment vertebral artery dissection at the C4/5 level. This resulted in 25% luminal narrowing. No evidence of distal occlusion. CTA of the chest with IV contrast showed no evidence for PE or other acute abnormalities. MRI of the brain without contrast showed no evidence for stroke or other acute intracranial abnormalities. The patient does have a right maxillary sinusitis. There is also partial opacification of the left mastoid air cells which may be due to inflammatory mastoiditis. The patient denies any sinus symptoms, nasal congestion, ear pain, or URI symptoms. EXTERNAL RECORDS REVIEWED: I reviewed the patient's outpatient PCP office visit note as summarized above. CHRONIC MEDICAL/SOCIAL CONDITIONS AFFECTING CARE: Crohn's disease on Skyrizi with a history of GI bleed after NSAID use CONSULTATIONS: Dr. Carbajal of neurology locally. Dr. Desir of telestroke neurology at [facility]. On-call hospitalist. MDM SUMMARY: The patient was seen during a time of extreme volume and extreme acuity. Nursing triage protocols were initiated with IV lock, labs, and/or imaging studies conducted by protocol in the triage area. The patient was initially evaluated in a triage room and then re-evaluated once they were taken back to an exam room. The patient started this morning with dizziness, tingling into his hands, weakness of his body, and nausea. The patient states anytime he tries to stand up or walk he gets very dizzy. He also has a rash beside the left nipple into the right leg as discussed above. No focal deficits on exam. NIH stroke scale of 0. GCS of 15. Normal dysphagia screen. The patient was given 1 L normal saline solution bolus as well as meclizine 25 mg p.o. The meclizine improved his symptoms, but they did not resolve. White blood cell count elevated at 12.71 with unclear etiology, but the patient has been on steroids recently. Hemoglobin normal at 17.4. Platelet count elevated at 460. Coags were normal. Glucose 120 and alk phos 117, but CMP otherwise without acute abnormalities. Magnesium normal. High-sensitivity troponin normal. TSH normal. Lyme disease screen negative. COVID, flu, and RSV were negative. Lipid panel normal. Hemoglobin A1c is still pending. Chest x-ray negative for acute cardiopulmonary etiology. CT scan of the head without contrast was negative for acute intracranial abnormality. CTA of the head with IV contrast showed no acute abnormalities. CTA of the neck with IV contrast showed a very short segment vertebral artery dissection at the C4/5 level. This resulted in 25% luminal narrowing. No evidence of distal occlusion. CTA of the chest with IV contrast showed no evidence for PE or other acute abnormalities. MRI of the brain without contrast showed no evidence for stroke or other acute intracranial abnormalities. The patient does have a right maxillary sinusitis. There is also partial opacification of the left mastoid air cells which may be due to inflammatory mastoiditis. The patient denies any sinus symptoms, nasal congestion, ear pain, or URI symptoms. The patient denies any injury or trauma. The patient denies any chiropractic evaluation or manipulation. I spoke with Dr. Carbaajl of neurology locally. He stated that he would normally recommend the patient be started on antiplatelet therapy such as aspirin for the vertebral artery dissection. However, given the patient's history of GI bleed and Crohn's disease, he recommended reaching out to telestroke neurology at [facility] for their recommendation. I spoke with Dr. Beebe from telestroke neurology at [facility] in regards to the patient and the patient was also evaluated via the telestroke cart. Dr. Beebe recommended starting the patient on 81 mg aspirin for the vertebral artery dissection and monitoring him closely for signs of GI bleed. He also recommended an MRI of the brain without contrast, lipid panel, and hemoglobin A1c. He recommended the patient be started on a statin if his lipid panel was abnormal. He also recommended the patient be admitted for complete stroke workup. The patient was given 81 mg aspirin in the ER. His lipid panel was normal and hemoglobin A1c is still pending. MRI of the brain without contrast as above. I spoke with the on-call hospitalist who agreed to admit the patient for further evaluation and treatment. Please refer to their dictation for further details. The patient's care was transferred in stable condition. DIAGNOSIS: Vertebral artery dissection Vertigo Left-sided neck pain Crohn's disease with history of GI bleed Past Med/Surg History Problem List (Updated 12/08/24 @ 23:42 by Daphne Cantu PA-C) Neck pain on left side (Acute) Vertigo (Acute) Vertebral artery dissection (Acute) Restless leg syndrome Fatigue Vitamin D deficiency Hypogonadism male Mild intermittent asthma Bilateral leg cramps (Chronic) Crohn's ileitis Osteoporosis (Chronic) Iron deficiency anemia (Chronic) Crohns disease (Chronic) Medical History Sensorineural hearing loss (SNHL) of both ears Kidney stone Sensorineural hearing loss (SNHL) of left ear with restricted hearing of right ear Tinnitus of both ears Iron deficiency anemia Osteoporosis Medical marijuana use History of anesthesia reaction Kidney stones Stricture intestinal Surgical History History of lithotripsy History of bowel resection History of colonoscopy History of esophagogastroduodenoscopy (EGD) History of appendectomy History of wisdom tooth extraction Family History Grandfather (Paternal) Myocardial infarction, Onset Age: 31 Grandfather (Maternal) Stroke Prostate cancer Lung cancer History of irritable bowel syndrome Other No family history of adverse response to anesthesia Denies family history of Ovarian cancer Crohn's disease Breast cancer Colorectal cancer Social History Smoking Status: Former smoker Tobacco Type: Cigarettes Age Started Using Tobacco: 17; Age Quit Using Tobacco: 41; packs per day: 1; Second Hand Exposure: No; Do You Dip or Chew Tobacco: No; Hx Alcohol Use: Yes (rarely) Alcohol type: beer, wine and hard liquor Hx Substance Use: Yes (medical marijuana) Last Used Substance: Days (ago) Last Used Substance Other:: 11/18/21 Substance Use Type Other:: medical card Preferred Language: Occitan Communication Ability: Effective Visual Impairment: No Limitations Hearing Ability: Hard of Hearing Hoop Bender Tank Required: No Beliefs That Will Affect Care: None marital status: Current Living Situation: Spouse and Family Current Living Situation Comment: Lives with and 2 kids current occupational status: employed current occupation: Billing department rep How many Children do You have: 2 Feels Safe at Home: Yes Childhood Exposure to Second-Hand Smoke: Yes Diet: regular caffeine: Yes during the past year weight has: remained stable Dental Care, Regularly: Yes Physical Activity Frequency: Daily Seatbelt Use: always Sunscreen Use: Yes Assistive Devices: None Allergies Allergies Allergy/AdvReac Type Severity Reaction Status Date / Time cat dander Allergy Intermediate Difficulty Verified 12/08/24 16:00 Breathing NSAIDS (Non-Steroidal AdvReac GI Verified 12/08/24 16:00 Anti-Inflamma Hemorrhage Home Meds Home Medications Medication Instructions Recorded Confirmed Medical Marijuana 1 inh inhalation UD PRN Pain 05/18/21 12/08/24 cholecalciferol (vitamin D3) 50 50 mcg PO QAM 11/15/21 12/08/24 mcg (2,000 unit) capsule risankizumab-rzaa 60 mg/mL 60 mg IV DIRECTED 10/22/22 12/08/24 intravenous solution (Skyrizi) ascorbic acid (vitamin C) 500 mg 500 mg PO DAILY 12/08/24 12/08/24 tablet (Vitamin C) Previous Rx's Medication Instructions Recorded safety needles 18 gauge x 1 1/2" #100 ea 02/10/24 (BD Eclipse) syringe with needle 3 mL 25 x 5/8" #50 ea 04/13/24 (BD Eclipse Luer-Francisco J) testosterone cypionate 200 mg/mL 80 mg (0.4 mL) subcut Q7D #6 mL 08/11/24 intramuscular oil (Depo-Testosterone) albuterol sulfate 90 mcg/actuation 1 puff inhalation Q6H PRN 09/15/24 aerosol inhaler (Ventolin HFA) shortness of breath or wheezing #8.5 grams Results & Data (ED) Vital Signs Vital Signs - 24 hr 12/08/24 11:28 12/08/24 14:10 12/08/24 14:12 Temperature 36.3 C L Temperature Source Oral Pulse Rate 88 85 Pulse Rate [Apical] 85 Pulse Rhythm Regular Pulse Rhythm [Apical] Regular Pulse Strength Normal Respiratory Rate 24 18 Respiratory Effort / Characteristics Non-Labored Spontaneous Respiratory Depth Normal Blood Pressure 124/79 Blood Pressure [Right Arm] Blood Pressure Mean 94 Blood Pressure Mean [Right Arm] Pulse Oximetry 97 97 Oxygen Delivery Method Room Air Room Air Sepsis Recent Fever Within 48 Hours No Sepsis New/Unexplained Change in Mental Status N/A Sepsis Action Taken by Nursing No Action Required 12/08/24 15:00 12/08/24 16:43 Temperature Temperature Source Pulse Rate Pulse Rate [Apical] 81 74 Pulse Rhythm Pulse Rhythm [Apical] Pulse Strength Respiratory Rate 18 18 Respiratory Effort / Characteristics Respiratory Depth Blood Pressure Blood Pressure [Right Arm] 131/88 127/88 Blood Pressure Mean Blood Pressure Mean [Right Arm] 102 101 Pulse Oximetry 94 96 Oxygen Delivery Method Room Air Room Air Sepsis Recent Fever Within 48 Hours Sepsis New/Unexplained Change in Mental Status Sepsis Action Taken by Nursing Laboratory Data 12/08/24 11:34 12/08/24 12:21 Lab Results 12/08/24 12/08/24 12/08/24 Range/Units 11:34 12:21 12:25 WBC 12.71 H Cancelled (4.8-10.8) K/ul RBC 6.12 H Cancelled (4.70-6.10) M/uL Hgb 17.4 Cancelled (14.0-18.0) g/dl Hct 50.6 Cancelled (42.0-52.0) % MCV 82.7 Cancelled (80.0-100.0) fL MCH 28.4 Cancelled (25.0-34.0) pg MCHC 34.4 Cancelled (32.0-36.0) g/dL RDW Std Deviation 39.9 Cancelled (36.4-46.3) fL RDW Coeff of Narayan 13.5 Cancelled (11.5-14.5) % Plt Count 460 H Cancelled (130-400) K/uL MPV 9.2 L Cancelled (9.4-12.4) fL Immature Gran % (Auto) 0.3 Cancelled % Neut % (Auto) 81.5 Cancelled % Lymph % (Auto) 12.9 Cancelled % Washburn % (Auto) 4.1 Cancelled % Eos % (Auto) 0.8 Cancelled % Baso % (Auto) 0.4 Cancelled % Neut # (Auto) 10.36 H Cancelled (1.40-6.50) K/uL Lymph # (Auto) 1.64 Cancelled (1.20-3.40) K/uL Washburn # (Auto) 0.52 Cancelled (0.11-0.59) K/uL Eos # (Auto) 0.10 Cancelled (0.00-0.50) K/uL Baso # (Auto) 0.05 Cancelled (0.00-0.20) K/uL Immature Gran # (Auto) 0.04 Cancelled (0.01-0.20) K/uL Absolute Nucleated RBC Cancelled Nucleated RBC % (auto) Cancelled Neutrophils % (Manual) Cancelled Band Neutrophils % Cancelled Lymphocytes % (Manual) Cancelled Prolymphocyte % Cancelled Reactive Lymphs % (Man) Cancelled Monocytes % (Manual) Cancelled Eosinophils % (Manual) Cancelled Basophils % (Manual) Cancelled Metamyelocytes % (Man) Cancelled Myelocytes % (Man) Cancelled Promyelocytes % (Man) Cancelled Blast Cells % (Manual) Cancelled Plasma Cell % (Manual) Cancelled Other Cells % Cancelled Nucleated RBC % Cancelled Neutrophils # (Manual) Cancelled Band Neutrophils # Cancelled Total Absolute Neuts Cancelled Lymphocytes # (Manual) Cancelled Prolymphocyte # Cancelled Reactive Lymphs # Cancelled Total Abs Lymphocytes Cancelled Monocytes # (Manual) Cancelled Eosinophils # (Manual) Cancelled Basophils # (Manual) Cancelled Metamyelocytes # (Man) Cancelled Myelocytes # (Manual) Cancelled Promyelocytes # (Man) Cancelled Blast Cells # (Man) Cancelled Plasma Cell # (Manual) Cancelled Other Cells # Cancelled Nucleated RBCs # (Man) Cancelled Hypersegmented Neuts Cancelled Hyposegmented Neuts Cancelled Hypogranular Neuts Cancelled Large Granular Lymphs Cancelled # Lrg Granular Lymphs Cancelled Hairy Cells Cancelled Smudge Cells Cancelled Toxic Granulation Cancelled Toxic Vacuolation Cancelled Dohle Bodies Cancelled Moiz Rods Cancelled Platelet Estimate Cancelled Hypogranular Platelets Cancelled Giant Platelets Cancelled Platelet Satelliting Cancelled RBC Morphology Cancelled Polychromasia Cancelled Hypochromasia Cancelled Poikilocytosis Cancelled Basophilic Stippling Cancelled Anisocytosis Cancelled Microcytosis Cancelled Macrocytosis Cancelled Spherocytes Cancelled Pappenheimer Bodies Cancelled Sickle Cells Cancelled Target Cells Cancelled Tear Drop Cells Cancelled Ovalocytes Cancelled Stomatocytes Cancelled Garces-[place] Bodies Cancelled Echinocytes Cancelled Acanthocytes (Spur) Cancelled Rouleaux Cancelled RBC Agglutinates Cancelled Schistocytes Cancelled Sezary Cell Cancelled PT 10.3 (9.0-12.0) Seconds INR 0.9 (0.9-1.1) APTT 28 (21-31) Seconds PTT Ratio 1.0 Sodium 137 (136-145) mmol/L Potassium 3.9 (3.5-5.1) mmol/L Chloride 102 (98-107) mmol/L Carbon Dioxide 25 (21-32) mmol/L Anion Gap 10 (3-11) BUN 9 (6-23) mg/dl Creatinine 0.88 (0.6-1.4) mg/dl Est Cr Clr Drug Dosing 101.6 ml/min eGFR 106.07 BUN/Creatinine Ratio 10.2 (10-20) Glucose 120 H (70-99(Fasting)) mg/dl POC Glucose 113 H (70-99) mg/dl Calcium 10.1 (8.6-10.3) mg/dl Magnesium (1.7-2.4) mg/dl Total Bilirubin 1.0 (0.2-1.0) mg/dl AST 16 (13-39) U/L ALT 18 (7-52) U/L Alkaline Phosphatase 117 H (34-104) U/L Troponin I High Sens (0-20) pg/ml Total Protein 8.5 H (6.0-8.3) gm/dl Albumin 4.5 (3.4-5.0) gm/dl Globulin 4.0 (2.5-4.0) gm/dl Albumin/Globulin Ratio 1.1 (0.9-2) Triglycerides 59 (0-150) mg/dl Cholesterol 117 (0-200) mg/dl LDL Cholesterol, Calc 53 mg/dl VLDL Cholesterol, Calc 12 (0-30) mg/dl HDL Cholesterol 52 mg/dl Cholesterol/HDL Ratio 2.3 (0-5) TSH 1.687 (0.300-4.500) uIu/ml Lyme Disease Screen Negative (Negative) SARS-CoV-2 (PCR) NEGATIVE (Negative) Influenza Type A (PCR) Negative (Neg) Influenza Type B (PCR) Negative (Neg) RSV (RT-PCR) Negative (Neg) Blood Parasites ID Cancelled 12/08/24 Range/Units 14:01 WBC (4.8-10.8) K/ul RBC (4.70-6.10) M/uL Hgb (14.0-18.0) g/dl Hct (42.0-52.0) % MCV (80.0-100.0) fL MCH (25.0-34.0) pg MCHC (32.0-36.0) g/dL RDW Std Deviation (36.4-46.3) fL RDW Coeff of Narayan (11.5-14.5) % Plt Count (130-400) K/uL MPV (9.4-12.4) fL Immature Gran % (Auto) % Neut % (Auto) % Lymph % (Auto) % [place]burn % (Auto) % Eos % (Auto) % Baso % (Auto) % Neut # (Auto) (1.40-6.50) K/uL Lymph # (Auto) (1.20-3.40) K/uL [place]burn # (Auto) (0.11-0.59) K/uL Eos # (Auto) (0.00-0.50) K/uL Baso # (Auto) (0.00-0.20) K/uL Immature Gran # (Auto) (0.01-0.20) K/uL Absolute Nucleated RBC Nucleated RBC % (auto) Neutrophils % (Manual) Band Neutrophils % Lymphocytes % (Manual) Prolymphocyte % Reactive Lymphs % (Man) Monocytes % (Manual) Eosinophils % (Manual) Basophils % (Manual) Metamyelocytes % (Man) Myelocytes % (Man) Promyelocytes % (Man) Blast Cells % (Manual) Plasma Cell % (Manual) Other Cells % Nucleated RBC % Neutrophils # (Manual) Band Neutrophils # Total Absolute Neuts Lymphocytes # (Manual) Prolymphocyte # Reactive Lymphs # Total Abs Lymphocytes Monocytes # (Manual) Eosinophils # (Manual) Basophils # (Manual) Metamyelocytes # (Man) Myelocytes # (Manual) Promyelocytes # (Man) Blast Cells # (Man) Plasma Cell # (Manual) Other Cells # Nucleated RBCs # (Man) Hypersegmented Neuts Hyposegmented Neuts Hypogranular Neuts Large Granular Lymphs # Lrg Granular Lymphs Hairy Cells Smudge Cells Toxic Granulation Toxic Vacuolation Dohle Bodies Moiz Rods Platelet Estimate Hypogranular Platelets Giant Platelets Platelet Satelliting RBC Morphology Polychromasia Hypochromasia Poikilocytosis Basophilic Stippling Anisocytosis Microcytosis Macrocytosis Spherocytes Pappenheimer Bodies Sickle Cells Target Cells Tear Drop Cells Ovalocytes Stomatocytes Garces-[place] Bodies Echinocytes Acanthocytes (Spur) Rouleaux RBC Agglutinates Schistocytes Sezary Cell PT (9.0-12.0) Seconds INR (0.9-1.1) APTT (21-31) Seconds PTT Ratio Sodium (136-145) mmol/L Potassium (3.5-5.1) mmol/L Chloride (98-107) mmol/L Carbon Dioxide (21-32) mmol/L Anion Gap (3-11) BUN (6-23) mg/dl Creatinine (0.6-1.4) mg/dl Est Cr Clr Drug Dosing ml/min eGFR BUN/Creatinine Ratio (10-20) Glucose (70-99(Fasting)) mg/dl POC Glucose (70-99) mg/dl Calcium (8.6-10.3) mg/dl Magnesium 1.8 (1.7-2.4) mg/dl Total Bilirubin (0.2-1.0) mg/dl AST (13-39) U/L ALT (7-52) U/L Alkaline Phosphatase (34-104) U/L Troponin I High Sens 2.9 (0-20) pg/ml Total Protein (6.0-8.3) gm/dl Albumin (3.4-5.0) gm/dl Globulin (2.5-4.0) gm/dl Albumin/Globulin Ratio (0.9-2) Triglycerides (0-150) mg/dl Cholesterol (0-200) mg/dl LDL Cholesterol, Calc mg/dl VLDL Cholesterol, Calc (0-30) mg/dl HDL Cholesterol mg/dl Cholesterol/HDL Ratio (0-5) TSH (0.300-4.500) uIu/ml Lyme Disease Screen (Negative) SARS-CoV-2 (PCR) (Negative) Influenza Type A (PCR) (Neg) Influenza Type B (PCR) (Neg) RSV (RT-PCR) (Neg) Blood Parasites ID Administered Medications Discontinued Medications Aspirin (Aspirin 81 Mg Ectab) 81 mg PO NOW STA Stop: 12/08/24 15:50 Last Admin: 12/08/24 16:44 Dose: 81 mg Documented By: SONNY Sodium Chloride (Nss) 1,000 mls @ 999 mls/hr IV .Q1H1M ONE Stop: 12/08/24 14:27 Last Infusion: 12/08/24 15:46 Dose: Infused Documented By: Admin: 12/08/24 14:07 Dose: 999 mls/hr Documented By: ILIANA Ioversol (Optiray 320 125ml) 118 ml IV ONCE ONE Stop: 12/08/24 14:12 Last Admin: 12/08/24 14:11 Dose: 118 ml Documented By: CARLOS A Meclizine HCl (Meclizine Hcl 25 Mg Tab) 25 mg PO NOW STA Stop: 12/08/24 13:28 Last Admin: 12/08/24 14:07 Dose: 25 mg Documented By: ILIANA Imaging Data Radiologist's Impression: Chest X-Ray 12/08/24 11:34 XR chest 1V not portable CLINICAL HISTORY: vertigo COMPARISON STUDY: 02/05/2024 FINDINGS: The heart is normal in size. There is no failure. There is no focal pulmonary consolidation. No pleural effusions are visualized. IMPRESSION: No active disease in the chest. ACT 112: Negative or not required by law. Electronically signed by: Ron Hopson M.D. 12/08/2024 12:[address] 12/08/24 11:34 CT SCAN OF THE BRAIN WITHOUT IV CONTRAST CLINICAL HISTORY: Vertigo COMPARISON STUDY: MRI the brain dated 12/12/2023 TECHNIQUE: Unenhanced axial CT scan of the brain was performed from the vertex to the skull base. A dose lowering technique was utilized adhering to the principles of ALARA. CT DOSE: 625.8 mGy.cm FINDINGS: No intra or extra-axial mass lesions are visualized. There is no CT evidence of acute cortical infarction. There is no evidence of acute hemorrhage. Note is made of slight increased density of the tentorium, but this is unlikely to be related to acute hemorrhage given its symmetry and the patient's clinical presentation. The ventricular system is of normal size and configuration for age. Note is made of prominent pineal calcification. There is persistent complete opacification of the right maxillary sinus. IMPRESSION: No acute intracranial findings. ACT 112: Negative or not required by law. Electronically signed by: Ron Hopson M.D. 12/08/2024 12:12 PM Chest CTA 12/08/24 13:27 CT angio chest PE protocol HISTORY: 49 years-old Male with PE. Acute shortness of breath with dizziness TECHNIQUE: Multiple CTA images of the chest were obtained after the intravenous administration of 118 ml Optiray. Coronal and sagittal MIPS were obtained from the axial data set and were submitted for review. All measurements were obtained according to NASCET criteria. A dose lowering technique was utilized adhering to the principles of ALARA. COMPARISON: CTA neck of same day FINDINGS: CTA: Heart is normal in size. No pericardial effusion. No thoracic aortic aneurysm. Patency of the image great vessels. Unremarkable pulmonary artery. CT CHEST: Unremarkable thyroid. No lymphadenopathy. There is no pneumothorax, pleural effusion, airspace consolidation or pulmonary edema. No suspicious pulmonary nodules or masses. Right upper lobe subcentimeter calcified granuloma. The central airways are patent. No acute upper abdominal abnormality. Probable hepatic steatosis. Unremarkable soft tissues. No acute fracture. IMPRESSION: Unremarkable CTA of the chest. No pulmonary emboli are seen. ACT 112: Negative or not required by law. The above report was generated using voice recognition software. It may contain grammatical, syntax or spelling errors. Electronically signed by: Martell Neville M.D. 12/08/2024 3:08 PM Head CTA 12/08/24 13:27 CT ANGIOGRAM OF THE BRAIN CLINICAL HISTORY: Dizziness. Paresthesias COMPARISON STUDY: Unenhanced CT of the brain performed the same day 12/08/2024 TECHNIQUE: Following the IV administration of 118 cc of Optiray 320, CT angiogram of the brain was performed from the skull base to the vertex. Images are reviewed in the axial, sagittal, and coronal planes. 3-D MIPS images are created and assessed. IV contrast was administered without complication. A dose lowering technique was utilized adhering to the principles of ALARA. CT DOSE: 900.99 mGy.cm FINDINGS: Brain parenchyma: There is no evidence of hemorrhage or mass effect noting angiographic phase technique. There is no evidence of enhancing mass lesion on the angiogram phase images. No extra-axial fluid collection is seen. York-white matter differentiation is preserved. Ventricles, sulci, and cisterns: Normal in configuration. CT angiogram of the brain: The internal carotid arteries at the skull base are patent, as are the anterior and middle cerebral arteries. The vertebrobasilar system and posterior cerebral arteries are patent. The vertebral arteries are codominant. A posterior commuting artery is seen on the right. There is no aneurysm, high-grade stenosis, or focal vessel cutoff identified throughout the intracranial circulation. Dural sinuses: Clear as visualized. Orbits: The bony orbits are intact. The orbital contents are normal as visualized. Sinuses and mastoids: There is near complete opacification of the right maxillary sinus. Trace mucosal thickening is seen in the left maxillary antrum. The remaining Paranasal sinuses are clear. There is a small left mastoid effusion. The right mastoid air cells are well pneumatized. Cerumen is noted in the right external auditory canal. Calvarium: Unremarkable. IMPRESSION: 1. There is no evidence of hemorrhage or mass effect noting angiographic phase technique. 2. Unremarkable CT angiogram of the brain. ACT 112: Negative or not required by law. Electronically signed by: Dada Paredes M.D. 12/08/2024 2:41 PM Neck CTA 12/08/24 13:27 CT ANGIOGRAPHY OF THE NECK WITH CONTRAST CLINICAL HISTORY: Dizziness, paresthesias COMPARISON STUDY: No previous studies for comparison. Technique: CT angiography of the carotid and vertebral arteries was obtained using Optiray and 3D reconstruction on an independent workstation. NASCET criteria was utilized. Automated exposure control was utilized for the study. A dose lowering technique was utilized adhering to the principles of ALARA. CT DOSE: Findings: Visualized portions of lung apices are unremarkable. No thyroid masses are visualized. There is no pathologic adenopathy within the neck. There is no evidence of carotid artery stenosis or dissection. There is no evidence for right vertebral artery occlusion dissection or stenosis. There is a short segment left vertebral artery dissection at the C4-5 level. This is also a 25% diameter narrowing. There is no evidence of distal occlusion. IMPRESSION: 1. No evidence of carotid artery dissection, stenosis, or occlusion 2. No evidence of right vertebral artery dissection, stenosis or occlusion 3. Very short segment left vertebral artery dissection at the C4-5 level. This results in a 25% luminal narrowing. No evidence of distal occlusion. ACT 112: Negative or not required by law. Electronically signed by: Ron Hopson M.D. 12/08/2024 2:51 PM Brain MRI 12/08/24 15:49 Clinical History: Dizziness. Rule out stroke Technique: Multiple T1 and T2-weighted magnetic resonance images were obtained of the brain without gadolinium contrast Findings: There is no sign of acute or old infarction with normal-appearing diffusion weighted images. No definite focus of demyelination is seen. No definite mass lesion is seen on this noncontrast study. There is no intracranial hemorrhage or other fluid collection. No midline shift or other form of herniation is seen. There is no hydrocephalus. Normal flow-voids are seen within the arteries of the [id number]. The orbits appear unremarkable. There is complete opacification of the right maxillary sinus. There is partial opacification of the left mastoid air cells Impression: 1. Normal-appearing brain with no infarct seen 2. Right maxillary sinusitis 3. Partial opacification of the left mastoid air cells, which may be due to inflammatory mastoiditis ACT 112: Positive. There are findings on this exam that require communication between the performing entity and the patient following Patient Test Result Information Act ([place] ACT 112) guidelines. Electronically signed by David Rodriguez 12-08-2024 5:29 PM Discharge Plan Visit Data Chief Complaint: Neuro Symptoms/Deficit Stated Complaint: DIZZINESS, SHAKES, FINGERTIPS TINGLING ED Provider: Orion Aldana ED Midlevel Provider: Daphne Cantu Discharge Problem: Vertebral artery dissection, Vertigo, Neck pain on left side, Crohns disease Patient Disposition: Admitted As Inpatient Condition: Fair Discharge Instructions Interventions: ED Discharge Assessment Last Done: 12/08/24 19:35
[2024-12-08 13:36] LABS: Hematocrit (blood only) 50.6 % (42.0-52.0); Hemoglobin 17.4 g/dl (14.0-18.0); Immature Granulocytes # (auto) 0.04 K/uL (0.01-0.20); Immature Granulocytes % (auto) 0.3 %; Mean Corpuscular Hemoglobin 28.4 pg (25.0-34.0); Mean Corpuscular Volume 82.7 fL (80.0-100.0); Platelet Count 460 K/uL (130-400); RDW Standard Deviation 39.9 fL (36.4-46.3); Red Blood Count 6.12 M/uL (4.70-6.10); White Blood Count 12.71 K/ul (4.8-10.8)
[2024-12-08 13:54] LABS: Thyroid Stimulating Hormone 1.687 uIu/ml (0.300-4.500)
[2024-12-08] MEDS: SODIUM CHLORIDE 0.9% 1,000 ML IV ONE (14:07)
[2024-12-08] MEDS: MECLIZINE HCL 25 MG TAB PO STA (14:07)
[2024-12-08] MEDS: OPTIRAY 320 125ml IV ONE (14:11)
[2024-12-08 14:36] LABS: Magnesium 1.8 mg/dl (1.7-2.4)
--- NOTE | 2024-12-08 14:42 | CT Scan Report ---
CT ANGIOGRAM OF THE BRAIN CLINICAL HISTORY: Dizziness. Paresthesias COMPARISON STUDY: Unenhanced CT of the brain performed the same day 12/08/2024 TECHNIQUE: Following the IV administration of 118 cc of Optiray 320, CT angiogram of the brain was pe rformed from the skull base to the vertex. Images are reviewed in the axial, sagittal, and coronal pl anes. 3-D MIPS images are created and assessed. IV contrast was administered without complication. A dose lowering technique was utilized adhering to the principles of ALARA. CT DOSE: 900.99 mGy.cm FINDINGS: Brain parenchyma: There is no evidence of hemorrhage or mass effect noting angiographic phase techniq ue. There is no evidence of enhancing mass lesion on the angiogram phase images. No extra-axial fluid collection is seen. York-white matter differentiation is preserved. Ventricles, sulci, and cisterns: Normal in configuration. CT angiogram of the brain: The internal carotid arteries at the skull base are patent, as are the an terior and middle cerebral arteries. The vertebrobasilar system and posterior cerebral arteries are p atent. The vertebral arteries are codominant. A posterior commuting artery is seen on the right. Ther e is no aneurysm, high-grade stenosis, or focal vessel cutoff identified throughout the intracranial circulation. Dural sinuses: Clear as visualized. Orbits: The bony orbits are intact. The orbital contents are normal as visualized. Sinuses and mastoids: There is near complete opacification of the right maxillary sinus. Trace mucosa l thickening is seen in the left maxillary antrum. The remaining Paranasal sinuses are clear. There i s a small left mastoid effusion. The right mastoid air cells are well pneumatized. Cerumen is noted i n the right external auditory canal. Calvarium: Unremarkable. IMPRESSION: 1. There is no evidence of hemorrhage or mass effect noting angiographic phase technique. 2. Unremarkable CT angiogram of the brain. ACT 112: Negative or not required by law. Electronically signed by: Dada Paredes M.D. 12/08/2024 2:41 PM
[2024-12-08 14:48] LABS: Influenza A virus by PCR Negative (Neg); Influenza B virus by PCR Negative (Neg); SARS CoV2 RNA(COVID-19) Ceph NEGATIVE (Negative)
--- NOTE | 2024-12-08 14:53 | CT Scan Report ---
CT ANGIOGRAPHY OF THE NECK WITH CONTRAST CLINICAL HISTORY: Dizziness, paresthesias COMPARISON STUDY: No previous studies for comparison. Technique: CT angiography of the carotid and vertebral arteries was obtained using Optiray and 3D rec onstruction on an independent workstation. NASCET criteria was utilized. Automated exposure control was utilized for the study. A dose lowering technique was utilized adhering to the principles of ALA RA. CT DOSE: Findings: Visualized portions of lung apices are unremarkable. No thyroid masses are visualized. There is no pathologic adenopathy within the neck. There is no evidence of carotid artery stenosis or dissection. There is no evidence for right vertebral artery occlusion dissection or stenosis. There is a short segment left vertebral artery dissection at the C4-5 level. This is also a 25% diame ter narrowing. There is no evidence of distal occlusion. IMPRESSION: 1. No evidence of carotid artery dissection, stenosis, or occlusion 2. No evidence of right vertebral artery dissection, stenosis or occlusion 3. Very short segment left vertebral artery dissection at the C4-5 level. This results in a 25% lumin al narrowing. No evidence of distal occlusion. ACT 112: Negative or not required by law. Electronically signed by: Ron Hopson M.D. 12/08/2024 2:51 PM
--- NOTE | 2024-12-08 15:09 | CT Scan Report ---
CT angio chest PE protocol HISTORY: 49 years-old Male with PE. Acute shortness of breath with dizziness TECHNIQUE: Multiple CTA images of the chest were obtained after the intravenous administration of 118 ml Optiray. Coronal and sagittal MIPS were obtained from the axial data set and were submitted for review. All measurements were obtained according to NASCET criteria. A dose lowering technique was u tilized adhering to the principles of ALARA. COMPARISON: CTA neck of same day FINDINGS: CTA: Heart is normal in size. No pericardial effusion. No thoracic aortic aneurysm. Patency of the image g reat vessels. Unremarkable pulmonary artery. CT CHEST: Unremarkable thyroid. No lymphadenopathy. There is no pneumothorax, pleural effusion, airspace consol idation or pulmonary edema. No suspicious pulmonary nodules or masses. Right upper lobe subcentimeter calcified granuloma. The central airways are patent. No acute upper abdominal abnormality. Probable hepatic steatosis. Unremarkable soft tissues. No acute fracture. IMPRESSION: Unremarkable CTA of the chest. No pulmonary emboli are seen. ACT 112: Negative or not required by law. The above report was generated using voice recognition software. It may contain grammatical, syntax o r spelling errors. Electronically signed by: Martell Neville M.D. 12/08/2024 3:08 PM
[2024-12-08 16:01] LABS: INR 0.9 (0.9-1.1); Partial Thromboplastin Time 28 Seconds (21-31); Prothrombin Time 10.3 Seconds (9.0-12.0)
--- NOTE | 2024-12-08 16:15 | Electrocardiogram Report ---
Test Reason : Blood Pressure : */* mmHG Vent. Rate : 94 BPM Atrial Rate : 94 BPM P-R Int : 154 ms QRS Dur : 80 ms QT Int : 350 ms P-R-T Axes : 63 81 61 degrees QTcB Int : 437 ms Normal sinus rhythm Early repolarization Normal ECG When compared with ECG of 02-Mar-2018 12:37, No significant change was found Confirmed by Guru Busch ([id number]) on 12/08/2024 4:15:14 PM Referred By: Confirmed By: Guru Busch
[2024-12-08 16:17] LABS: Cholesterol 117.0 mg/dl (0-200); HDL Cholesterol 52.0 mg/dl; Triglycerides 59.0 mg/dl (0-150)
[2024-12-08] MEDS: ASPIRIN 81 MG ECTAB PO STA (16:44)
--- NOTE | 2024-12-08 16:47 | History & Physical Report ---
<Statement entered by Neeru Loera MD - 12/08/24 19:10> I have reviewed vital signs, chart notes, labs and imaging. I have personally seen, evaluated and examined the patient. I have also discussed the management of the patient with the BISHNU and I agree with the exam findings documented in the history and physical examination and the documented assessment and plan unless otherwise stated below. No trauma, chiropractic or twisting movement prior to neck pain starting. No joint hypermobility. Has some inflammatory arthritis related to Crohn's. Severe vertigo and some nausea this morning seems to have resolved or virtually resolved. No visual field deficits. Has chronic nasal congestion related to cat allergies My neuro exam is normal excepting several beats of horizontal nystagmus looking leftward that provoked mild vertigo. Otherwise notable for VFF to confrontation and FNF without dysmetria. Wax obscures TM on R and normal on L. No tenderness over L mastoid process. 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 -cholesterol is excellent and not clear that mechanistically he would benefit from a statin -meclizine PRN -debrox R ear Date of Service December 08, 2024 Assessment & Plan (1) Vertebral artery dissection: (2) Vertigo: (3) Neck pain on left side: (4) Crohns disease: Plan Patient is a 49-year-old male with past medical history of RLS, Crohn's disease s/p bowel resection 2019 follows with [facility], and hypogonadism on testosterone injections. Patient presented due to sudden onset vertigo, dizziness, bilateral upper extremity tingling, diaphoresis, and nausea. Patient also noted to have had left neck pain for approximately 3 weeks. Diagnostic imaging revealed very short segment vertebral artery neck dissection at C4/C5 level. Telestroke recommended admission with brain MRI without contrast, lipid panel, A1c, and to be started on baby aspirin 81 mg daily. #vertebral artery dissection/vertigo/left neck pain - head CT and head CTA negative for acute changes. Neck CTA showed very short segment left vertebral artery dissected at the C4/C5 level resulting in a 25% luminal narrowing, no evidence of distal occlusion. Lipid panel WNL. No other indication for acute vertigo found TSH WNL, electrolytes stable, no signs of acute infection, Lyme screen negative, COVID/flu/RSV swab negative. - stroke without TNK order set - active ROM, Q4H neuro checks, pt/ot evals - start ASA 81mg daily now - stroke recommended start statin if abnormal lipid panel; lipid panel WNL on admission - A1c pending - Allow for permissive hypertension with goal parameters 220/110 until MRI resulted - Telemetry monitoring - MRI brain without contrast ordered - echo with bubble study ordered - consult neurology - meclizine prn for vertigo #Crohn's disease - follows with [facility], s/p ileocecectomy 2019. Currently on Skyrizi, well-controlled. #hypogonadism - follows with endocrinology. Testosterone injections on Mondays. #asthma - continue prn inhaler VTE ppx: SCDs, low risk and dissection above Dispo: med/tele - likely to dc 12/09 Admission and Anticipated Discharge Date Admission Date: 12/08/24 History of Present Illness Chief Complaint: vertigo Primary Care Provider: Arline Amaya MD Patient is a 49-year-old male with past medical history of RLS, Crohn's disease s/p bowel resection 2019 follows with [facility], and hypogonadism on testosterone injections. Patient presented due to sudden onset vertigo, dizziness, bilateral upper extremity tingling, diaphoresis, and nausea. Diagnostic imaging revealed very short segment vertebral artery neck dissection at C4/C5 level. Telestroke recommended admission with brain MRI without contrast, lipid panel, A1c, and to be started on baby aspirin 81 mg daily. Patient seen at bedside with his present. He stated he woke up with sudden onset vertigo at around 0630. He had associated nausea (no vomiting), BL hand tingling, and almost fell. He has never had an episode like this before. The symptoms have now greatly improved and he only feels lightheaded. Patient also has had ongoing left neck swelling and pain for 3 weeks that is now improved after a steroid taper from his PCP. He is to start PT on Friday. He denies any facial droop, slurred speech, vision changes, complete numbness of extremities. He denies personal or family history of stroke. He denies nicotine use, socially drinks alcohol, and is a daily medical marijuana smoker. 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 Allergies Allergy/AdvReac Type Severity Reaction Status Date / Time cat dander Allergy Intermediate Difficulty Verified 12/08/24 16:00 Breathing NSAIDS (Non-Steroidal AdvReac GI Verified 12/08/24 16:00 Anti-Inflamma Hemorrhage Home Medications Medication Instructions Recorded Confirmed Type Medical Marijuana 1 inh inhalation UD PRN Pain 05/18/21 12/08/24 History cholecalciferol (vitamin D3) 50 50 mcg PO QAM 11/15/21 12/08/24 History mcg (2,000 unit) capsule risankizumab-rzaa 60 mg/mL 60 mg IV DIRECTED 10/22/22 12/08/24 History intravenous solution (Skyrizi) safety needles 18 gauge x 1 1/2" #100 ea 02/10/24 11/26/24 Rx (BD Eclipse) syringe with needle 3 mL 25 x 5/8" #50 ea 04/13/24 11/26/24 Rx (BD Eclipse Luer-Francisco J) testosterone cypionate 200 mg/mL 80 mg (0.4 mL) subcut Q7D #6 mL 08/11/24 12/08/24 Rx intramuscular oil (Depo-Testosterone) albuterol sulfate 90 mcg/actuation 1 puff inhalation Q6H PRN 09/15/24 12/08/24 Rx aerosol inhaler (Ventolin HFA) shortness of breath or wheezing #8.5 grams ascorbic acid (vitamin C) 500 mg 500 mg PO DAILY 12/08/24 12/08/24 History tablet (Vitamin C) Past Med/Surg History Problem List (Updated 12/08/24 @ 17:04 by Sherron Carbajal PA-C) Neck pain on left side Vertigo Vertebral artery dissection Restless leg syndrome Fatigue Vitamin D deficiency Hypogonadism male Mild intermittent asthma Bilateral leg cramps (Chronic) Crohn's ileitis Osteoporosis (Chronic) Iron deficiency anemia (Chronic) Crohns disease (Chronic) Medical History Sensorineural hearing loss (SNHL) of both ears Kidney stone Sensorineural hearing loss (SNHL) of left ear with restricted hearing of right ear Tinnitus of both ears Iron deficiency anemia Osteoporosis Medical marijuana use History of anesthesia reaction Kidney stones Stricture intestinal Surgical History History of lithotripsy History of bowel resection History of colonoscopy History of esophagogastroduodenoscopy (EGD) History of appendectomy History of wisdom tooth extraction Family History Grandfather (Paternal) Myocardial infarction, Onset Age: 31 Grandfather (Maternal) Stroke Prostate cancer Lung cancer History of irritable bowel syndrome Other No family history of adverse response to anesthesia Denies family history of Ovarian cancer Crohn's disease Breast cancer Colorectal cancer Social History Smoking Status: Former smoker Tobacco Type: Cigarettes Age Started Using Tobacco: 17; Age Quit Using Tobacco: 41; packs per day: 1; Second Hand Exposure: No; Do You Dip or Chew Tobacco: No; Hx Alcohol Use: Yes (rarely) Alcohol type: beer, wine and hard liquor Hx Substance Use: Yes (medical marijuana) Last Used Substance: Days (ago) Last Used Substance Other:: 11/18/21 Substance Use Type Other:: medical card Preferred Language: Malaysian Communication Ability: Effective Visual Impairment: No Limitations Hearing Ability: Hard of Hearing Bi Application Developer Required: No Beliefs That Will Affect Care: None marital status: Current Living Situation: Spouse and Family Current Living Situation Comment: Lives with and 2 kids current occupational status: employed current occupation: Billing department rep How many Children do You have: 2 Feels Safe at Home: Yes Childhood Exposure to Second-Hand Smoke: Yes Diet: regular caffeine: Yes during the past year weight has: remained stable Dental Care, Regularly: Yes Physical Activity Frequency: Daily Seatbelt Use: always Sunscreen Use: Yes Assistive Devices: None Review of Systems Review of Systems: see HPI Physical Exam Physical Exam: The patient is awake, alert and oriented 3, well developed and well nourished, normocephalic and atraumatic, in no acute distress. Non-toxic appearing. HEENT- EOMI, mucous membranes moist. Hearing grossly intact. Heart-normal S1 and S2. No murmurs, rubs or gallops. Lungs-clear bilaterally, no respiratory distress, no accessory muscle use. Abdomen-normal bowel sounds and soft. No ascites noted. Non-tender. Extremities- no clubbing, cyanosis, or edema. Rheumatologic-normal range of motion. Psychiatric-normal affect. Musculoskeletal: no cyanosis or clubbing, extremities motor strength 5/5 Neurologic: PERRL, EOMI, accommodation nl, no face palsy, no dysarthria Results & Data Results & Data Vital Signs (Past 12 Hours) Vital Signs Temp Pulse Pulse Resp BP BP Pulse Ox 12/08/24 16:43 74 18 127/88 96 12/08/24 15:00 81 18 131/88 94 12/08/24 14:12 85 18 97 12/08/24 14:10 85 12/08/24 11:28 36.3 C L 88 24 124/79 97 O2 Del Method 12/08/24 16:43 Room Air 12/08/24 15:00 Room Air 12/08/24 14:12 Room Air 12/08/24 14:10 12/08/24 11:28 Room Air Laboratory Results Reviewed CBC, PT/INR, CMP, magnesium, troponin, lipid panel, A1c, TSH, Lyme screen, COVID/flu/RSV swab Diagnostic Findings reviewed neck CTA, head CTA, chest CTA, head CT, CXR Medications Administered ED1L NSS bolus, aspirin 81 mg p.o., Antivert 25 mg p.o. ECG Additional Comments: normal sinus rhythm Rate 94 QTc 437 Code Status & VTE Plan Code Status full code VTE Prophylaxis Plan VTE Prophylaxis will be ordered: Yes PG Care Time/CCT Total # of Minutes Spent Total Time Spent with Patient: Total time spent is greater than 50% in coordination of care (as documented) at patient's floor/unit and/or counseling patient: Coding Level of Care Code 39761 INT INP/OBS CARE 3/75MIN Diagnoses Vertebral artery dissection I77.74 Vertigo R42 Neck pain on left side M54.2 Crohns disease K50.90 Gastrointestinal tract location: small intestine (4) Crohns disease Gastrointestinal tract location: small intestine
--- NOTE | 2024-12-08 17:30 | Magnetic Resonance Report ---
Clinical History: Dizziness. Rule out stroke Technique: Multiple T1 and T2-weighted magnetic resonance images were obtained of the brain without gadolinium contrast Findings: There is no sign of acute or old infarction with normal-appearing diffusion weighted images. No definite focus of demyelination is seen. No definite mass lesion is seen on this noncontrast study. There is no intracranial hemorrhage or other fluid collection. No midline shift or other form of herniation is seen. There is no hydrocephalus. Normal flow-voids are seen within the arteries of the [id number]. The orbits appear unremarkable. There is complete opacification of the right maxillary sinus. There is partial opacification of the left mastoid air cells Impression: 1. Normal-appearing brain with no infarct seen 2. Right maxillary sinusitis 3. Partial opacification of the left mastoid air cells, which may be due to inflammatory mastoiditis ACT 112: Positive. There are findings on this exam that require communication between the performing entity and the patient following Patient Test Result Information Act ([place] ACT 112) guidelines. Electronically signed by Dvaid Rodriguez 12-08-2024 5:29 PM
[2024-12-08] MEDS ORDERED: DOCUSATE SODIUM 100 MG CAP PO PRN (19:47)
[2024-12-08] MEDS ORDERED: MELATONIN 3 MG TAB PO PRN (19:47)
[2024-12-08] MEDS ORDERED: MECLIZINE 12.5 MG TAB PO PRN (19:47)
[2024-12-08] MEDS ORDERED: ALBUTEROL HFA 8 GM INHALER INH PRN (19:47)
[2024-12-08] MEDS ORDERED: ONDANSETRON INJ 2 MG/ML 2 ML VIAL IV PRN (19:47)
[2024-12-08] MEDS ORDERED: PHARMACIST DISCHARGE MED REC CONSULT PRN (19:47)
[2024-12-08] MEDS ORDERED: ACETAMINOPHEN 325 MG TAB PO PRN (19:47)
[2024-12-09 07:08] LABS: Hematocrit (blood only) 47.6 % (42.0-52.0); Hemoglobin 16.2 g/dl (14.0-18.0); Immature Granulocytes # (auto) 0.05 K/uL (0.01-0.20); Immature Granulocytes % (auto) 0.4 %; Mean Corpuscular Hemoglobin 28.9 pg (25.0-34.0); Mean Corpuscular Volume 84.8 fL (80.0-100.0); Platelet Count 393 K/uL (130-400); RDW Standard Deviation 41.6 fL (36.4-46.3); Red Blood Count 5.61 M/uL (4.70-6.10); White Blood Count 12.18 K/ul (4.8-10.8)
[2024-12-09 07:26] LABS: Anion Gap 8.0 (3-11); Blood Urea Nitrogen 9.0 mg/dl (6-23); Calcium 9.5 mg/dl (8.6-10.3); Carbon Dioxide 31.0 mmol/L (21-32); Chloride 102.0 mmol/L (98-107); Creatinine Clr Calc Pharmacy 96.3 ml/min; Glucose 94.0 mg/dl (70-99(Fasting)); Potassium 3.8 mmol/L (3.5-5.1); Sodium 141.0 mmol/L (136-145)
[2024-12-09 07:39] LABS: Hemoglobin A1C 5.6 % (4.5-5.6)
--- NOTE | 2024-12-09 09:07 | Neurology Consultation ---
Date of Consultation December 09, 2024 Assessment & Plan (1) Vertebral artery dissection: History of Present Illness Attending Physician: Neeru Loera MD History of Present Illness S: 49 yo male with vertigo yesterday and now feeling much better with essentially resolved. pt CTA apparently showing left vert dissection with some lumen narrowing but with flow. mri brain reported negative but on my view, there appears to be subacute small ischemic stroke left mid pontine area without bleed. it appears to be subacute in nature. pt reports having left side neck pain about 3 weeks ago suddenly and had pain for few days and went to his PCP and had steroid and got better. no more neck pain. pt currently asymptomatic. Admission HPI: Patient is a 49-year-old male with past medical history of RLS, Crohn's disease s/p bowel resection 2019 follows with [facility], and hypogonadism on testosterone injections. Patient presented due to sudden onset vertigo, dizziness, bilateral upper extremity tingling, diaphoresis, and nausea. Diagnostic imaging revealed very short segment vertebral artery neck dissection at C4/C5 level. Telestroke recommended admission with brain MRI without contrast, lipid panel, A1c, and to be started on baby aspirin 81 mg daily. Patient seen at bedside with his present. He stated he woke up with sudden onset vertigo at around 0630. He had associated nausea (no vomiting), BL hand tingling, and almost fell. He has never had an episode like this before. The symptoms have now greatly improved and he only feels lightheaded. Patient also has had ongoing left neck swelling and pain for 3 weeks that is now improved after a steroid taper from his PCP. He is to start PT on Friday. He denies any facial droop, slurred speech, vision changes, complete numbness of extremities. He denies personal or family history of stroke. He denies nicotine use, socially drinks alcohol, and is a daily medical marijuana smoker. Her wishes to be full code however would not want [employer] life support. Allergies Allergy/AdvReac Type Severity Reaction Status Date / Time cat dander Allergy Intermediate Difficulty Verified 12/08/24 16:00 Breathing NSAIDS (Non-Steroidal AdvReac GI Verified 12/08/24 16:00 Anti-Inflamma Hemorrhage Home Medications Medication Instructions Recorded Confirmed Type Medical Marijuana 1 inh inhalation UD PRN Pain 05/18/21 12/08/24 History cholecalciferol (vitamin D3) 50 50 mcg PO QAM 11/15/21 12/08/24 History mcg (2,000 unit) capsule risankizumab-rzaa 60 mg/mL 60 mg IV DIRECTED 10/22/22 12/08/24 History intravenous solution (Skyrizi) safety needles 18 gauge x 1 1/2" #100 ea 02/10/24 11/26/24 Rx (BD Eclipse) syringe with needle 3 mL 25 x 5/8" #50 ea 04/13/24 11/26/24 Rx (BD Eclipse Luer-Francisco J) testosterone cypionate 200 mg/mL 80 mg (0.4 mL) subcut Q7D #6 mL 08/11/24 12/08/24 Rx intramuscular oil (Depo-Testosterone) albuterol sulfate 90 mcg/actuation 1 puff inhalation Q6H PRN 09/15/24 12/08/24 Rx aerosol inhaler (Ventolin HFA) shortness of breath or wheezing #8.5 grams ascorbic acid (vitamin C) 500 mg 500 mg PO DAILY 12/08/24 12/08/24 History tablet (Vitamin C) Patient History Medical History Sensorineural hearing loss (SNHL) of both ears Kidney stone Sensorineural hearing loss (SNHL) of left ear with restricted hearing of right ear Tinnitus of both ears Iron deficiency anemia Osteoporosis Medical marijuana use History of anesthesia reaction Kidney stones Stricture intestinal Surgical History History of lithotripsy History of bowel resection History of colonoscopy History of esophagogastroduodenoscopy (EGD) History of appendectomy History of wisdom tooth extraction Family History Grandfather (Paternal) Myocardial infarction, Onset Age: 31 Grandfather (Maternal) Stroke Prostate cancer Lung cancer History of irritable bowel syndrome Other No family history of adverse response to anesthesia Denies family history of Ovarian cancer Crohn's disease Breast cancer Colorectal cancer Social History Smoking Status: Former smoker Tobacco Type: Cigarettes Age Started Using Tobacco: 17; Age Quit Using Tobacco: 41; packs per day: 1; Second Hand Exposure: No; Do You Dip or Chew Tobacco: No; Hx Alcohol Use: Yes Alcohol type: beer Hx Substance Use: Yes Last Used Substance: Days (ago) Last Used Substance Other:: daily Substance Use Type Other:: medical card Preferred Language: Maori Communication Ability: Effective Visual Impairment: No Limitations Hearing Ability: Hard of Hearing Route Delivery Manager Required: No Beliefs That Will Affect Care: None marital status: Current Living Situation: Spouse and Family Current Living Situation Comment: Lives at home with and two kids current occupational status: employed current occupation: Billing department rep How many Children do You have: 2 Feels Safe at Home: Yes Childhood Exposure to Second-Hand Smoke: Yes Diet: regular caffeine: Yes during the past year weight has: remained stable Dental Care, Regularly: Yes Physical Activity Frequency: Daily Seatbelt Use: always Sunscreen Use: Yes Assistive Devices: None Review of Systems Review of Systems: All systems reviewed & are unremarkable except as noted in Subjective Constitutional: as per Subjective / HPI Eyes: as per Subjective / HPI Ear, Nose, Mouth, Throat: as per Subjective / HPI Respiratory: as per Subjective / HPI Cardiovascular: as per Subjective / HPI Gastrointestinal: as per Subjective / HPI Musculoskeletal: as per Subjective / HPI Integumentary: as per Subjective / HPI Neurologic: as per Subjective / HPI Psychiatric: as per Subjective / HPI Endocrine: as per Subjective / HPI Hematologic / Lymphatic: as per Subjective / HPI Allergy / Immunological: as per Subjective / HPI Exam (Neuro) Physical Exam: HEENT: normocephalic Neuro: Mental: AOx4, fluent speech, normal comprehension, no apraxia, no L/R confusion, no neglect CN: PERRL, Full EOM, symmetric face, no nystagmus seen. midline T/U/P, 5/5 SCM/traps. Motor: No abnormal movements, normal tone and bulk, 5/5 t/o bilaterally Sens: intact to touch b/l grossly Coord: intact FNT b/l DTR: 2+ sym b/l Impression: 49 yo male with subacute left medial pontine ischemic stroke and incidental finding of left vertebral dissection with flow intact. MRI brain does not report stroke but on my view, there is subtle ischemic change lesion at the left pontine. Pt clinically without symptoms and vertigo symptoms resolved. His vertigo sy mptom may not be related to the stroke/vertebral injury as they appears subacute. His left mastoiditis maybe contributing to his vertigo. Recommendations: 1. tx matoiditis Since his vertebral injury was subacute (?3 weeks ago), anticoagulation is not clearly needed at this point. 2. antiplatelet therapy: for this pt, DA PT for 21 days recommended. * DAPT (dual antiplatelet therapy): start for pts with ABCD2 score 4 or higher. Initial loading dose with ASA 325mg and Plavix 300mg (if pt has not been started), then ASA 81mg daily and Plavix 75mg daily. Continue DAPT for 21 days if found small vessel disease only or continue for 90 days if found to have intracranial large artery atherosclerosis. After that, can continue single antiplatelet therapy (either ASA or Plavix). 3. Images: TTE with bubble to finish st roke work up. 4. Permissive Hypertension not needed as his lesions are subacute in nature. 6. Long-term SBP goal less than 130. Avoid hypovolemia and hypotension. 9. Avoid hypoglycemia, serum glucose goa l during hospitalization: 140-180. 10. Long-term HgA1c goal less than 7. 11. Start statin if not on it and no abs olute contraindication, long-term LDL goal less than 70. 14. Consider [employer] cardiac monitori ng, i.e. MCOT (mobile cardiac outpatient telemetry) or ICM (insertable air sampling and monitoring, e.g. LINQ), if never had retirement cardiac monitoring done previously. And if found to have atrial flutter or fibrillation, should consider anticoagulation therapy if no contraindication. outpt vascular surgery consultation repeat CTA neck in about 4 weeks pt wants to go home today, if echo normal and pt feels well, I have no objection from discharge. call again if new question. Chart reviewed I have spent more than 50% educating patient about potential diagnosis and neurological evaluation and coordinating care with patient's treatment team. Total time spent (including chart review and coordination of care): 60 min (this includes chart review). Results & Data Vital Signs (Past 12 Hours) Vital Signs Temp Pulse Pulse Resp BP BP Pulse Ox 12/09/24 08:01 36.5 C 84 17 117/71 94 12/09/24 07:12 79 12/09/24 02:38 36.4 C L 94 H 18 116/60 95 12/09/24 01:10 12/08/24 23:50 87 12/08/24 23:50 36.5 C 89 18 145/92 H 94 12/08/24 21:50 130/96 96 12/08/24 21:49 132/95 95 O2 Del Method 12/09/24 08:01 Room Air 12/09/24 07:12 12/09/24 02:38 Room Air 12/09/24 01:10 Room Air 12/08/24 23:50 12/08/24 23:50 Room Air 12/08/24 21:50 Room Air 12/08/24 21:49 Room Air PG Care Time/CCT Total # of Minutes Spent Total Time Spent with Patient: Total time spent is greater than 50% in coordination of care (as documented) at patient's floor/unit and/or counseling patient: Coding Level of Care Code 98057 IN/OBS CONSULT LVL 4,60M Diagnoses Vertebral artery dissection I77.74
[2024-12-09] MEDS: ASPIRIN 81 MG ECTAB PO SCH (09:12)
[2024-12-09] MEDS ORDERED: FLUTICASONE PROPIONATE NA SPR 16 GM BTL SCH (10:30)
[2024-12-09] MEDS: AMOXICILLIN/CLAVULANATE 875 MG TAB PO SCH (11:44)
[2024-12-09] MEDS: CLOPIDOGREL BISULFATE 300 MG TAB PO STA (11:44)
--- NOTE | 2024-12-09 13:18 | XCELERA ---
[id number] [id number]
[2024-12-09] MEDS ORDERED: STROKE PATIENT DISCHARGE STA (14:35)
--- NOTE | 2024-12-09 14:39 | Discharge Summary ---
Discharge Summary Date of Service December 09, 2024 Principal Dx & Hospital Course #1 = Principal Diagnosis (1) Vertebral artery dissection: (2) Left pontine stroke: (3) Vertigo: (4) TIA (transient ischemic attack): (5) Crohns disease: Plan Patient is a 49-year-old male with past medical history of RLS, Crohn's disease s/p bowel resection 2019 follows with [facility], and hypogonadism on testosterone injections. Patient presented due to sudden onset vertigo, dizziness, bilateral upper extremity tingling, diaphoresis, and nausea. Patient also noted to have had left neck pain for approximately 3 weeks. Diagnostic imaging revealed very short segment vertebral artery neck dissection at C4/C5 level. Telestroke recommended admission with brain MRI without contrast, lipid panel, A1c, and to be started on baby aspirin 81 mg daily. #vertebral artery dissection/vertigo/left neck pain - head CT and head CTA negative for acute changes. Neck CTA showed very short segment left vertebral artery dissected at the C4/C5 level resulting in a 25% luminal narrowing, no evidence of distal occlusion. Lipid panel WNL. TSH WNL, electrolytes stable, no signs of acute infection, Lyme screen negative, COVID/flu/RSV swab negative. -MRI read as negative but consulting neurologist feels there may be tiny subacute pontine stroke -vertigo symptoms were acutely very bad (could not walk) and resolved by fo llowing AM so could have represented a TIA -neurologist recommended DAPT x 21 days with ASA and plavix then can be on ASA monotherapy after that. Anticoagulation not recommended -recommend CBC on follow up if he has any issues with GI bleeding, anemia, thrombocytopenia rec stop plavix and continue ASA. There is no strong recommendation for DAPT with carotid/vertebral dissection -I am not sure why he developed this, there was no trauma/straining/chiropractic/yoga etc prior to pain. Does not have joint hypermobility. -referral made to vascular surgery Dr. Licona for the dissection, neuro advised repeat CTA neck in about a month other stroke workup completed: -LDL 50 which is below goal of <70 and unlikely to benefit from statin -A1c normal -normotensive -TTE without PFO or intracardiac thrombus -tele negative for arrhythmia #possible R maxillary sinusitis and L mastoiditis - has chronic nasal symptoms he relates to cat allergy. MRI brain noted these findings which could cause vertigo. I am not suspicious of acute mastoiditis because mastoid process is not painful tender or inflamed. WBC was mildly elevated, but chronically so since 2021. Treating with 10 days augmentin plus flonase in case these are playing a role in symptoms. Meclizine PRN #Crohn's disease - follows with [facility], s/p ileocecectomy 2019. Currently on Skyrizi, well-controlled. #hypogonadism - follows with endocrinology. Testosterone injections on Mondays. #asthma - continue prn inhaler Notes For Next Care Provider CBC to check for anemia, thrombocytopenia while on DAPT x 21 days Referred to vascular surgery for dissection. Neuro recommended repeat CTA neck in 1 month Medication Changes From Visit ASA and Plavix started Augmentin + flonase for poss sinusitis or mastoiditis, meclizine PRN Admission HPI Per Admitting Provider Patient is a 49-year-old male with past medical history of RLS, Crohn's disease s/p bowel resection 2019 follows with [facility], and hypogonadism on testosterone injections. Patient presented due to sudden onset vertigo, dizziness, bilateral upper extremity tingling, diaphoresis, and nausea. Diagnostic imaging revealed very short segment vertebral artery neck dissection at C4/C5 level. Telestroke recommended admission with brain MRI without contrast, lipid panel, A1c, and to be started on baby aspirin 81 mg daily. Patient seen at bedside with his present. He stated he woke up with sudden onset vertigo at around 0630. He had associated nausea (no vomiting), BL hand tingling, and almost fell. He has never had an episode like this before. The symptoms have now greatly improved and he only feels lightheaded. Patient also has had ongoing left neck swelling and pain for 3 weeks that is now improved after a steroid taper from his PCP. He is to start PT on Friday. He denies any facial droop, slurred speech, vision changes, complete numbness of extremities. He denies personal or family history of stroke. He denies nicotine use, socially drinks alcohol, and is a daily medical marijuana smoker. Her wishes to be full code however would not want snf life support. Discharge Exam AOx4 appears comfortable three beats horizontal nystagmus looking leftward and slight vertigo sensation looking leftward, up and to the right is normal walked well with PT and OT and did the stairs without difficulty Discharge Plan Discharge Items Patient Disposition: Home - Self-Care Reason For Visit: VERTEBRAL ARTERY DISSECTION, STROKE WORKUP Discharge Diagnosis: vertebral artery dissection, possible small subacute left pontine stroke, acute vertigo possible TIA Condition on Discharge: Good Activity: Resume your previous activity Non-emergency contact: Primary Care Provider Call non-emergency contact if: you have any medication questions and your symptoms worsen Follow-up/Referrals: Arline Amaya MD [Primary Care Provider] - 12/20/24 3:00 pm (APPT WITH [facility] PA-C) Riccardo Licona MD [Physician] - Diet: Regular Addtl Attending Provider Instructions: You were evaluated for acute vertigo You were found to have a small dissection (tear) in the wall of your left vertebral artery. This is a condition that can lead to stroke and seems to explain your recent left neck pain. It is possible that the vertigo was a TIA - a temporary stroke-like neurological problem that resolves within 24 hours and not visible on brain MRI. The consulting neurologist thought there may be a tiny recent stroke in the middle part of the brain (diana) based on his review of the MRI films. No other causes of stroke/TIA besides the dissection were found: there were no clots in your heart and "bubble test" was negative for a condition called PFO, you do not have diabetes or high blood pressure and your cholesterol is excellent, you had no arrhythmias on heart monitoring. The neurologist recommended 21 days of treatment with both a baby aspirin and plavix (clopidogrel) to prevent stroke. After 21 days you can stay on baby aspirin alone. Please follow up in primary care for monitoring of blood counts - if you develop significant blood in stool or anemia or low platelets, the plavix can be stopped We made a referral to a vascular surgeon to follow the dissection. It is very small and not in need of full blood thinners or other intervention right now. The neurologist recommended repeat CTA of the neck in about a month to follow the dissection. Its possible that the vertigo was triggered or exacerbated by infection in your sinus or mastoid (sinus-like area behind your left ear) -we are trying a course of amoxicillin-clavulanate for this -you may want to take a probiotic for 2-4 weeks to prevent antibiotic-associated diarrhea -I recommend flonase (fluticasone) nasal spray to help with the sinus congestion and environmental allergies - this is available over the counter If you have ongoing vertigo symptoms you can use meclizine as needed It was a pleasure taking care of you in the hospital, Neeru Loera MD Addtl Lottery Office Manager Provider Instructions: Risk Factors for Stroke: You can reduce your chances of stroke by working with your medical provider to adopt a healthy lifestyle. Some specific ways to lower your chance of stroke are: * If you are a smoker, now is the time to stop smoking cigarettes * If you are diabetic, improve the control of your blood sugars * Avoid excessive amounts of alcohol * Control high blood pressure * Lose weight if you are overweight * Be sure to lead an active lifestyle * Eat a healthy diet low in salt, cholesterol and fat You should know about other risk factors for stroke that you are unable to control. These include: * Age 55 years or older * Male gender * Certain racial groups: , or / * Family History of Stroke, Mini stroke or Heart Attack * Sickle Cell Disease Follow Up: It is important for you to keep your follow up appointments with your medical provider. Who to Call and When: Medical Emergencies: Call 911 immediately if you experience any of the following warning signs and symptoms of Stroke: * Sudden numbness or weakness of the face, arm or leg, especially on one side of the body * Sudden confusion, trouble speaking or understanding * Sudden trouble seeing in one or both eyes * Sudden trouble walking, dizziness, loss of balance or coordination * Sudden severe headache with no cause Do not delay calling 911 if you experience any warning signs or symptoms of a stroke. Delay in seeking medical attention may affect what treatments can be given to you. . Pending Studies at Discharge: No Stand-Alone Forms: [facility], Smoking Cessation, Medications to P revent Stroke Medications and DC Order Prescriptions: New clopidogrel 75 mg Tablet 75 mg PO QAM Qty: 21 0RF amoxicillin-pot clavulanate 875-125 mg Tablet 1 tab PO BIDM Qty: 19 0RF meclizine 12.5 mg Tablet 12.5 mg PO Q8H PRN (Reason: Vertigo) Qty: 30 0RF aspirin 81 mg Tablet,Delayed Release (Dr/Ec) 81 mg PO DAILY Qty: 0 0RF Rx Instructions: "baby aspirin" - buy over the counter fluticasone propionate 50 mcg/actuation [place],Suspension 1 spray NA BID Qty: 0 0RF Rx Instructions: buy over the counter Continued (DME) BD Eclipse Luer-Francisco J 3 mL 25 x 5/8" syringe See Rx Instructions .ROUTE .MEDSUPPLY Qty: 50 0RF Rx Instructions: Use to inject Testosterone weekly testosterone cypionate [Depo-Testosterone] 200 mg/mL oil 80 mg subcut Q7D Qty: 6 3RF Rx Instructions: Mondays albuterol sulfate [Ventolin HFA] 90 mcg/actuation HFA aerosol inhaler 1 puff INH Q6H PRN (Reason: shortness of breath or wheezing) Qty: 8.5 3RF Skyrizi 60 mg/mL solution 60 mg IV DIRECTED Rx Instructions: 60 intravenously; Every 8 weeks cholecalciferol (vitamin D3) 50 mcg (2,000 unit) capsule 50 mcg PO QAM (DME) safety needles [BD Eclipse] 18 gauge x 1 1/2" needle See Rx Instructions .ROUTE .MEDSUPPLY Qty: 100 0RF Rx Instructions: Use to draw up testosterone of injection weekly Medical Marijuana 1 inh inhalation UD PRN (Reason: Pain) ascorbic acid (vitamin C) [Vitamin C] 500 mg Tablet 500 mg PO DAILY Discharge Orders: Discharge Order (Routine); Ordered 12/09/24 Ordered By: Neeru Loera Admission Data Admit Date/Time: 12/08/24 17:10 Attending Provider: Neeru Loera Admit Provider: Neeru Loera Primary Care Provider: Arline Amaya Other Providers: Neeru Loera; Noah Carbajal Hospital Stay Data Consultations 12/08/24 16:48 ED Decision to Admit Stat 12/08/24 19:47 Consult Neurology Routine Diagnostic Imagining Performed 12/08/24 11:34 CT head/brain wo con Stat 12/08/24 13:27 CT angio chest PE protocol Stat CTA head w con [CT angio head w con] Stat CTA neck with con [CT angio neck with con] Stat 12/08/24 15:49 MRI Brain [MR brain wo con] Stat Pending Results Patient Have Any Pending Studies at Discharge: No Discharge Instructions Given to Patient (Per Discharging Provider) You were evaluated for acute vertigo You were found to have a small dissection (tear) in the wall of your left vertebral artery. This is a condition that can lead to stroke and seems to explain your recent left neck pain. It is possible that the vertigo was a TIA - a temporary stroke-like neurological problem that resolves within 24 hours and not visible on brain MRI. The consulting neurologist thought there may be a tiny recent stroke in the middle part of the brain (diana) based on his review of the MRI films. No other causes of stroke/TIA besides the dissection were found: there were no clots in your heart and "bubble test" was negative for a condition called PFO, you do not have diabetes or high blood pressure and your cholesterol is excellent, you had no arrhythmias on heart monitoring. The neurologist recommended 21 days of treatment with both a baby aspirin and p lavix (clopidogrel) to prevent stroke. After 21 days you can stay on baby aspirin alone. Please follow up in primary care for monitoring of blood counts - if you develop significant blood in stool or anemia or low platelets, the plavix can be stopped We made a referral to a vascular surgeon to follow the dissection. It is very small and not in need of full blood thinners or other intervention right now. The neurologist recommended repeat CTA of the neck in about a month to follow the dissection. Its possible that the vertigo was triggered or exacerbated by infection in your sinus or mastoid (sinus-like area behind your left ear) -we are trying a course of amoxicillin-clavulanate for this -you may want to take a probiotic for 2-4 weeks to prevent antibiotic-associated diarrhea -I recommend flonase (fluticasone) nasal spray to help with the sinus congestion and environmental allergies - this is available over the counter If you have ongoing vertigo symptoms you can use meclizine as needed It was a pleasure taking care of you in the hospital, Neeru Loera MD Total Time Total Time Spent Total Time Spent (In Minutes): I personally spent: 40 minutes today on clinical care activities including: reviewing chart notes and vital signs reviewing labs reviewing studies reviewing retirement consultant recs examining and counseling the patient writing prescriptions, discharge instructions documentation Coding Level of Care Code 91122 IN/OBS DISCH 30 MIN/LESS Diagnoses Vertebral artery dissection I77.74 Left pontine stroke I63.9 Vertigo R42 TIA (transient ischemic attack) G45.9 Crohns disease K50.90
--- NOTE | 2024-12-09 14:46 | Pharmacy Report ---
- Date of Service December 09, 2024 - Pharmacy CVA/TIA Medication Review Medications to Prevent Stroke handout has been added to the patients discharge packet. Antiplatelet(s) * aspirin 81 mg PO daily + clopidogrel 75 mg PO daily x 21 days, then monotherapy Cholesterol * High intensity statin deferred due to current cholesterol levels (LDL - 53) DVT Prophylaxis * SCD knee Therapeutic Anticoagulation * No history of Afib/Aflutter noted Type 2 Diabetes * Patient does not have T2DM
[2024-12-09 15:15] VITALS: RESP 16; TEMP 97.9; O2SAT 95
[2024-12-09 17:29] VITALS: BP 130/96; PULSE 74
[2024-12-10] MEDS ORDERED: CLOPIDOGREL BISULFATE 75 MG TAB PO SCH (09:00)
--- NOTE | 2024-12-10 11:04 | Pharmacy Report ---
Pharmacist Stroke Counseling - Date of Service December 10, 2024 - Scope: Pharmacy has been consulted to provide medication discharge counseling for this patient admitted with possible transient ischemic attack as per the Pharmacist Discharge Counseling for Stroke Patients Protocol. - Medications on Discharge: Home Medications Medication Instructions Recorded Confirmed Medical Marijuana 1 inh inhalation UD PRN Pain 05/18/21 12/08/24 cholecalciferol (vitamin D3) 50 50 mcg PO QAM 11/15/21 12/08/24 mcg (2,000 unit) capsule risankizumab-rzaa 60 mg/mL 60 mg IV DIRECTED 10/22/22 12/08/24 intravenous solution (Skyrizi) ascorbic acid (vitamin C) 500 mg 500 mg PO DAILY 12/08/24 12/08/24 tablet (Vitamin C) New Rx's Medication Instructions Recorded safety needles 18 gauge x 1 1/2" #100 ea 02/10/24 (BD Eclipse) syringe with needle 3 mL 25 x 5/8" #50 ea 04/13/24 (BD Eclipse Luer-Francisco J) testosterone cypionate 200 mg/mL 80 mg (0.4 mL) subcut Q7D #6 mL 08/11/24 intramuscular oil (Depo-Testosterone) albuterol sulfate 90 mcg/actuation 1 puff inhalation Q6H PRN 09/15/24 aerosol inhaler (Ventolin HFA) shortness of breath or wheezing #8.5 grams amoxicillin 875 mg-potassium 1 tab PO BIDM #19 tabs 12/09/24 clavulanate 125 mg tablet aspirin 81 mg tablet,delayed 81 mg PO DAILY #0 tabs 12/09/24 release clopidogrel 75 mg tablet 75 mg PO QAM #21 tabs 12/09/24 fluticasone propionate 50 1 spray NA BID #0 grams 12/09/24 mcg/actuation nasal spray,suspension meclizine 12.5 mg tablet 12.5 mg PO Q8H PRN Vertigo #30 tabs 12/09/24 - Action: The above medications, specifically ones for stroke treatment/prophylaxis, have been reviewed in detail with the patient and/or patient assisted sales representative(s) prior to discharge. This includes indication, common adverse reactions, drug interactions, and medication administration. Medication counseling has been employed using the teach-back method to ensure understanding. - Outcome: The patient and/or patient assisted sales representative(s) have demonstrated understanding of the medications. Additional comments: Spoke with patient about new prescriptions focusing mainly on the addition of aspirin +plavix (to continue plavix 21 days, then aspirin alone). He expressed concern about taking DAPT with his history of Chron's disease but will follow up with his GI doctor. (appointment not until February but stated will call into the office in [place] and speak to them about this). In the mean time, he did get prescriptions filled and starting taking them this morning. His only other concern was continued vertigo. He stated he will continue the Augmentin as prescribed and will use the meclizine PRN until his follow up appointment. No further complaints/concerns expressed. Thank you for allowing pharmacy to be involved in the care of this patient. Please call [phone] with any additional questions
== END 2024-12-09 18:30 | disposition home or self-care (01) | DRG 69 ==
LOC: ED 11:16 → EDINP 17:10 → SUATTDRO 17:10 → 2N 19:35